=== PATIENT | female | born 1975 | race Caucasian/White ===

== ENCOUNTER 2019-04-08 22:04 | Inpatient (IN) | payer BC ==
[~2019-04-08] VITALS: Ht 170.2 cm; Wt 58.1 kg
[2019-04-08 22:11] VITALS: BP 101/63
--- NOTE | 2019-04-08 22:11 | NUR ---
PT BIBA TO BED 09.
--- NOTE | 2019-04-08 22:13 | NUR ---
PT BIBA FOR FEVER, WEAKNESS AND HYPOTENSION. PT ALERT AND ORIENTED X4. PT IS LETHARGIC BUT ABLE TO ANSWER QUESTIONS APPROPRIATELY. 20 GAUGE IV ESTABLISHED ON SCENE IN RIGHT HAND. PT HAS PICC LINE IN LEFT ARM. PER PT ILEOSTOMY BAG WAS REMOVED ON 03/28/19 AND WAS SEPTIC. PT WAS TO BE ADMITTED TO [facility] ON Tuesday04/09/19 BUT "WASN'T DOING GOOD AT HOME." PT CURRENTLY ON 2L OF O2 VIA NC AT 98% SATURATION. ALLERGIES: PENICILLINS, SULFA. MED HX: LUPUS. SAFETY MEASURES IN PLACE. ERMD MADE AWARE OF PT STATUS.
[2019-04-08] MEDS ORDERED: NACL 0.9% 2,000 ML IV SCH (22:18)
[2019-04-08] MEDS ORDERED: LEVOFLOXACIN 750 MG/D5W PREMIX 150 ML IV ONE (22:20)
[2019-04-08] MEDS ORDERED: VANCOMYCIN 1,000 MG in DEXTROSE 5% 250 ML IV ONE (22:20)
--- NOTE | 2019-04-08 22:48 | NUR ---
xray at bedside
[2019-04-08 22:54] LABS: BASOPHILS % (AUTO) 0.6 % (0.0-2.0); EOSINOPHILS # (AUTO) 0.2 K/uL (0-0.4); EOSINOPHILS % (AUTO) 3.2 % (0.0-4.0); HEMATOCRIT 32.3 % (36-48); HEMOGLOBIN 10.5 g/dL (12.0-16.0); LYMPHOCYTES # (AUTO) 0.5 K/uL (2.5-16.5); LYMPHOCYTES % (AUTO) 7.6 % (20.5-51.1); MEAN CORPUSCULAR HEMOGLOBIN 28 pg (27-31); MEAN CORPUSCULAR HGB CONC 33 g/dL (33-37); MEAN CORPUSCULAR VOLUME 84.8 fL (80-94); MONOCYTES # (AUTO) 0.5 K/uL (0.8-1.0); MONOCYTES % (AUTO) 8.2 % (1.7-9.3); NEUTROPHILS % (AUTO) 80.4 % (42.2-75.2); PLATELET COUNT (AUTO) 121 K/uL (140-450); RED BLOOD CELL COUNT(AUTO) 3.81 MIL/uL (4.20-5.40); RED CELL DISTRIBUTION WIDTH 15.5 % (11.6-13.7); WHITE BLOOD COUNT (AUTO) 6.2 K/uL (4.8-10.8)
--- NOTE | 2019-04-08 22:55 | NUR ---
PT AT BEDSIDE. PER PT " RECEIVED ILEOSTOMY IN SEPTEMBER 2018 AND HAD A "TAKE DOWN" S/P CLOSURE OF ILEOSTOMY 02/28/19 AT [facility]. ON MARCH 23 PT WAS ADMITTED TO [facility] FOR SEPSIS" PER PT [facility] IS AWARE OF CURRENT SITUATION OF FEVER AND NOT FEELING WELL TODAY. THEY WERE TO HAVE A DIRECT ADMIT TO [facility] ON 04/09/19. PT CALLED 911 TODAY BECAUSE PT PASSED OUT IN THE BATHROOM. PT DID NOT HAVE LOC OR HAVE HEAD INJURY.
[2019-04-08 22:59] LABS: ANION GAP 9.8 (8-16); CREATININE 0.8 mg/dL (0.6-1.3); POTASSIUM 3.8 mmol/L (3.5-5.1)
[2019-04-08] MEDS ORDERED: HYDR2TAB6 PO (23:02)
[2019-04-08] MEDS ORDERED: GABA300C PO ×2 (23:02)
[2019-04-08] MEDS ORDERED: NA P135N RC (23:02)
[2019-04-08] MEDS ORDERED: [UNRECOGNIZED DRUG - CODE] PO (23:02)
[2019-04-08] MEDS ORDERED: ALPR1TAB2 PO (23:02)
[2019-04-08] MEDS ORDERED: MULT-153 PO (23:02)
[2019-04-08] MEDS ORDERED: ONDA8TAB PO (23:02)
[2019-04-08] MEDS ORDERED: TIZA4CAP PO (23:02)
[2019-04-08] MEDS ORDERED: SUMA100T1 PO (23:02)
[2019-04-08] MEDS ORDERED: PRO5 PO (23:02)
[2019-04-08] MEDS ORDERED: BISA-213 RC (23:02)
[2019-04-08] MEDS ORDERED: MIRABULK PO (23:02)
[2019-04-08] MEDS ORDERED: [UNRECOGNIZED DRUG - CODE] SL (23:02)
[2019-04-08] MEDS ORDERED: SIME20SU1 PO (23:02)
[2019-04-08] MEDS ORDERED: ACET-2619 PO (23:02)
[2019-04-08] MEDS ORDERED: MAGN400S60 PO (23:02)
[2019-04-08] MEDS ORDERED: BEN10 PO (23:02)
[2019-04-08 23:05] LABS: ALBUMIN 2.8 g/dL (3.4-5.0); TOTAL BILIRUBIN 0.7 mg/dL (0.0-1.0)
[2019-04-08 23:43] LABS: APPEARANCE,URINE CLEAR (CLEAR); BILIRUBIN,URINE NEGATIVE (NEGATIVE); BLOOD, URINE NEGATIVE (NEGATIVE); COLOR,URINE YELLOW (YELLOW); LEUKOCYTE ESTERASE ,URINE NEGATIVE (NEGATIVE); NITRITE, URINE NEGATIVE (NEGATIVE); UGLUCOSE NEGATIVE (NEGATIVE)
--- NOTE | 2019-04-08 23:51 | NUR ---
ERMD AT BEDSIDE
[2019-04-08] MEDS ORDERED: fentaNYL 0.05 MG/ML VIAL IVP ONE (23:55)
[2019-04-08] MEDS ORDERED: ACETAMINOPHEN EXTRA STRENGTH 500 MG TAB PO ONE (23:55)
[2019-04-08] MEDS ORDERED: VANCOMYCIN 1,000 MG VIAL ONE (23:59)
[2019-04-09] MEDS ORDERED: NACL 0.9% 1,000 ML IV SCH (00:07)
[2019-04-09] MEDS ORDERED: NACL 0.9% 1,000 ML IV ONE (00:10)
[2019-04-09 00:43] LABS: PROTHROMBIN TIME 11.1 secs (10.8-13.4)
[2019-04-09 00:47] LABS: FREE T4 (FREE THYROXINE) 0.61 ng/dL (0.76-1.46); MAGNESIUM 1.7 mg/dL (1.8-2.4); PHOSPHORUS 2.8 mg/dL (2.5-4.9); THYROID STIMULATING HORMONE 0.14 uIU/mL (0.34-3.74)
[2019-04-09 01:00] VITALS: BP 104/63
--- NOTE | 2019-04-09 01:00 | NUR ---
PT HONORIO. READY TO TRANSFER TO TELE ROOM 107A
--- NOTE | 2019-04-09 01:00 | NUR ---
REPORT RECEIVED FROM AM NURSE AT BEDSIDE. PT IN STABLE CONDITION. AAOX4. INTRODUCED SELF TO PT AND FAMILY. BOARD UPDATED. PT HAS COMPLAINTS OF PAIN. AWAITING MD ORDERS. NO SOB. AFEBRILE. IV SITE R HAND 20G INFILTRATED. WILL REMOVED IV. PT HAS A L UA SINGLE LUMEN PICC LINE FROM HOME PATENT AND INTACT WILL BE RUNNING NS@100ML/HR. PT HAS 2 1L BOLUSES FROM ER TO COMPLETE ALONG WITH VANCO WITH 145ML LEFT. SKIN WARM, DRY, AND INTACT WITH NO OPEN WOUNDS. MRSA SWAB COMPLETE. URINE TO BE COLLECTED. PT IS AMBULATORY WITH ASSIST. PT HAS S/P FALL AT HOME IN THE BATHROOM. BED LOCKED IN LOW POSITION. CALL GARCIA WITHIN REACH. SAFETY PRECAUTION IN PLACE. ALL NEEDS MET AT THIS TIME.
--- NOTE | 2019-04-09 01:07 | NUR ---
Transfer of care and report given to ANA LILIA Hernández
--- NOTE | 2019-04-09 01:07 | NUR ---
Patient will be admitted to care of Dr Roa. Admited to Tele. Will go to room 107a. Belongings list completed. Report to AAN LILIA Hernández.
[2019-04-09] MEDS ORDERED: DOCU1TAB73 PO (01:59)
[2019-04-09] MEDS ORDERED: [UNRECOGNIZED DRUG - CODE] PO (01:59)
[2019-04-09] MEDS ORDERED: PRO5 PO (01:59)
[2019-04-09] MEDS ORDERED: BEN10 PO (01:59)
--- NOTE | 2019-04-09 02:00 | NUR ---
URINE SAMPLE COMPLETE. SENT OUT TO LAB.
[2019-04-09 02:22] LABS: BARBITURATE, URINE NEG. ng/ml (NEG <=200); BENZODIAZEPINE, URINE POS. ng/mL (NEG <=200); CANNABINOID, URINE NEG. ng/mL (NEG <=50); COCAINE, URINE NEG. ng/mL (NEG <=300); OPIATE, URINE POS. ng/mL (NEG <=2000); PHENCYCLIDINE SCREEN,URINE NEG. ng/mL (NEG <=25)
[2019-04-09] MEDS ORDERED: MECLIZINE 25 MG TAB PO PRN (03:20)
[2019-04-09] MEDS ORDERED: HYOSCYAMINE SULFATE 0.125 MG SL SCH (03:20)
[2019-04-09] MEDS ORDERED: HYDROmorphone 2 MG TAB PO PRN (03:20)
[2019-04-09] MEDS ORDERED: DICYCLOMINE HYDROCHLORIDE PO SCH (03:20)
[2019-04-09] MEDS ORDERED: RIZATRIPTAN BENZOATE 10 MG PO SCH (03:20)
[2019-04-09] MEDS ORDERED: TPN PER PHARMACY MC PRN (03:20)
[2019-04-09 04:00] VITALS: BP 101/59
[2019-04-09] MEDS: DEXT 5% /NACL 0.9% 1,000 ML IV SCH ×3 (04:17→22:06)
[2019-04-09] MEDS ORDERED: cefTRIAXone 1,000 MG VIAL ONE (04:19)
--- NOTE | 2019-04-09 04:21 | NUR ---
DIANA HARTMAN AND RUNNING. PT TOLERATING WELL.
[2019-04-09] MEDS ORDERED: MAG SULF 2000 MG/WATER PREMIX 50 ML IV SCH (04:30)
[2019-04-09] MEDS ORDERED: SODIUM PHOSPHATE 118 ML ENEM RC SCH (04:30)
[2019-04-09] MEDS: ALPRAZolam 0.5 MG TAB PO PRN (04:33)
--- NOTE | 2019-04-09 04:33 | NUR ---
XANAX GIVEN PO FOR ANXIETY. PT TOLERATED WELL.
--- NOTE | 2019-04-09 04:53 | NUR ---
HUNG AND RUNNING. PT TOLERATED WELL.
[2019-04-09] MEDS ORDERED: ONDANSETRON 4 MG TAB PO SCH (05:00)
[2019-04-09] MEDS ORDERED: HYDROmorphone 1 MG/ML AMP IVP PRN (05:35)
[2019-04-09] MEDS: LEVOTHYROXINE 0.05 MG TAB PO SCH (05:38)
--- NOTE | 2019-04-09 05:38 | NUR ---
SYNTHROID GIVEN PO. PT TOLERATED WELL.
--- NOTE | 2019-04-09 05:41 | NUR ---
DILAUDID GIVEN FOR 8/10 GENERALIZED PAIN. PT TOLERATED WELL.
--- NOTE | 2019-04-09 06:20 | NUR ---
PT OFF THE FOOR FOR CT HEAD W/O CONTRAST.
--- NOTE | 2019-04-09 07:00 | NUR ---
PT WANTS ENEMA TO BE DONE LATER WHEN SHE IS AWAKE. PT IN STABLE CONDITION.
--- NOTE | 2019-04-09 07:05 | NUR ---
RECEIVED BEDSIDE REPORT FROM FINANCIAL PROCESSING CLERK NURSE. PATIENT IS AWAKE, ALERT AND ORIENTEDX4. NO SIGNS OF DISTRESS ON RA. SKIN IS INTACT. PATIENT CAME IN FOR SYNCOPE AND DOES NOT WANT TO DO ORTHO VITALS AT THIS TIME. FALL RISK PROTOCOL IN PLACE. CONTINENT. PATIENT HAS DARIN PICC LINE, SINGLE LUMEN. INFUSING D5NS AT 100. CLEAN, DRY AND INTACT. TELE MONITOR IN PLACE. BED IN LOW POSITION. CALL LIGHT WITHIN REACH. WILL CONTINUE TO MONITOR
[2019-04-09 07:12] LABS: CREATININE 0.7 mg/dL (0.6-1.3)
[2019-04-09 07:13] LABS: BASOPHILS % (AUTO) 0.5 % (0.0-2.0); EOSINOPHILS # (AUTO) 0.3 K/uL (0-0.4); EOSINOPHILS % (AUTO) 3.9 % (0.0-4.0); HEMATOCRIT 31.1 % (36-48); HEMOGLOBIN 10.2 g/dL (12.0-16.0); LYMPHOCYTES # (AUTO) 0.7 K/uL (2.5-16.5); LYMPHOCYTES % (AUTO) 10.6 % (20.5-51.1); MEAN CORPUSCULAR HEMOGLOBIN 28 pg (27-31); MEAN CORPUSCULAR HGB CONC 33 g/dL (33-37); MEAN CORPUSCULAR VOLUME 85.7 fL (80-94); MONOCYTES # (AUTO) 0.6 K/uL (0.8-1.0); MONOCYTES % (AUTO) 9.1 % (1.7-9.3); NEUTROPHILS # (AUTO) 5.3 K/uL (1.8-7.7); NEUTROPHILS % (AUTO) 75.9 % (42.2-75.2); PLATELET COUNT (AUTO) 116 K/uL (140-450); RED BLOOD CELL COUNT(AUTO) 3.63 MIL/uL (4.20-5.40); RED CELL DISTRIBUTION WIDTH 15.5 % (11.6-13.7)
[2019-04-09 07:30] LABS: MAGNESIUM 1.8 mg/dL (1.8-2.4); PHOSPHORUS 3.4 mg/dL (2.5-4.9)
[2019-04-09 08:00] VITALS: BP 128/82
[2019-04-09] MEDS ORDERED: HYOSCYAMINE 0.125 MG TAB SL PRN (08:50)
[2019-04-09] MEDS ORDERED: SENNOSIDES PO SCH (09:00)
[2019-04-09] MEDS: BISACODYL 10 MG SUPP RC SCH (09:00)
[2019-04-09] MEDS ORDERED: NON-FORMULARY ITEM (Bisacodyl (Dulcolax) 10 MG) RC SCH (09:00)
[2019-04-09] MEDS ORDERED: DOCUSATE SODIUM PO SCH (09:00)
[2019-04-09] MEDS: MAGNESIUM HYDROXIDE 2400 MG/30 ML UDC PO SCH (09:00)
[2019-04-09] MEDS ORDERED: NON-FORMULARY ITEM (Multivitamin (Multi-Vitamins) 1 TAB) PO SCH (09:00)
[2019-04-09] MEDS: DOCUSATE SODIUM 100 MG GELCAP PO SCH ×2 (09:00→22:07)
[2019-04-09] MEDS: DOCUSATE SOD/SENNA 50/8.6 MG 1 TAB PO SCH ×2 (09:00→21:00)
[2019-04-09] MEDS ORDERED: TIZANIDINE HCL PO SCH (09:00)
[2019-04-09] MEDS: POLYETHYLENE GLYCOL 17 GM/PKT PO SCH (09:00)
[2019-04-09] MEDS: HYDROmorphone PFS 2 MG/ML SYR IVP PRN ×4 (09:20→22:28)
[2019-04-09] MEDS: LACTOBACILLUS RHAMNOSUS GG 1 EACH CAP PO SCH (09:24)
[2019-04-09 09:25] LABS: CHOL/HDL RATIO 5.4 (1-4.5)
[2019-04-09] MEDS: GABAPENTIN 300 MG CAP PO SCH ×2 (09:25→22:08)
[2019-04-09] MEDS: MULTIVITAMIN 1 TAB PO SCH (09:25)
[2019-04-09] MEDS: tiZANidine 4 MG TAB PO SCH ×3 (09:26→17:12)
[2019-04-09] MEDS: MIDODRINE 5 MG TAB PO SCH ×3 (09:27→17:12)
--- NOTE | 2019-04-09 09:34 | NUR ---
PATIENT HAD A BM SHE SAID IT WAS "DECENT" REFUSED ALL LAXATIVES. STOOL SOFTNERS. PATIENT WANTED PAIN MED. ADMINISTERED PAIN MED, AND OTHER ARLET MEDS. PATIENT EDUCATED ON SIDE EFFECTS. TOLERATED WELL. WILL CONTINUE TO MONITOR. AT BEDSIDE
--- NOTE | 2019-04-09 10:12 | NUR ---
PATIENT IS SPEAKING TO STUDENT NURSE ABOUT HER ILEOSTOMY. NO SIGNS OF DISTRESS. WILL CONTINUE TO MONITOR
[2019-04-09] MEDS: ACETAMINOPHEN 325 MG TAB PO PRN ×2 (10:50→23:02)
--- NOTE | 2019-04-09 11:09 | NUR ---
PT WORKED WITH PATIENT. ORTH B/P VITALS ARE FOLLOWS SUP 116/52 SIT 110/78 STAND 108/77
[2019-04-09 12:00] VITALS: BP 119/71
--- NOTE | 2019-04-09 12:11 | NUR ---
BUBBLE STUDY IS DONE. WILL CONTINUE TO MONITOR THE PATIENT.
--- NOTE | 2019-04-09 13:37 | NUR ---
ADMINISTERED ARLET MED AND PRN PAIN MED. PATIENT TOLERATED WELL. EDUCATED ON SIDE EFFECTS. WILL CONTINUE TO MONITOR
--- NOTE | 2019-04-09 14:25 | NUR ---
DR WILSON SAID OK FOR COTTAGE CHEESE PLATTER, ORDERED PATIENT THE TRAY, TOLD HEIDI I WOULD PUT REG DIET BUT PATIENT CAN ONLY HAVE COTTAGE CHEESE PLATTER AND YOGURT
--- NOTE | 2019-04-09 15:08 | NUR ---
GAVE BEDSIDE REPORT TO ELPIDIO. PATIENT ENDORSED IN STABLE CONDITION.
--- NOTE | 2019-04-09 15:09 | NUR ---
RECEIVED BEDSIDE REPORT FROM YAQUELIN RN FOR CONTINUOS OF CARE, PT STABLE, NO DISTRESS NOTED.
[2019-04-09 16:00] VITALS: BP 127/77
--- NOTE | 2019-04-09 17:33 | NUR ---
PT C/O PAIN, STATED HER WHOLE BODY IS ACHING 01/31, PAIN MEDICATION PER MD ORDER ADMINISTERED, PT TOLERATED WELL, NO DISTRESS NOTED, CALL LIGHT WITHIN REACH, WILL CONTINUE TO MONITOR.
[2019-04-09 18:01] LABS: BASOPHILS % (AUTO) 0.9 % (0.0-2.0); EOSINOPHILS # (AUTO) 0.3 K/uL (0-0.4); EOSINOPHILS % (AUTO) 6.1 % (0.0-4.0); HEMATOCRIT 28.8 % (36-48); HEMOGLOBIN 9.4 g/dL (12.0-16.0); LYMPHOCYTES % (AUTO) 18.6 % (20.5-51.1); MEAN CORPUSCULAR HEMOGLOBIN 28 pg (27-31); MEAN CORPUSCULAR HGB CONC 33 g/dL (33-37); MEAN CORPUSCULAR VOLUME 85.4 fL (80-94); MONOCYTES # (AUTO) 0.7 K/uL (0.8-1.0); MONOCYTES % (AUTO) 14.1 % (1.7-9.3); NEUTROPHILS # (AUTO) 3.2 K/uL (1.8-7.7); NEUTROPHILS % (AUTO) 60.3 % (42.2-75.2); PLATELET COUNT (AUTO) 115 K/uL (140-450); RED BLOOD CELL COUNT(AUTO) 3.37 MIL/uL (4.20-5.40); RED CELL DISTRIBUTION WIDTH 15.6 % (11.6-13.7); WHITE BLOOD COUNT (AUTO) 5.2 K/uL (4.8-10.8)
--- NOTE | 2019-04-09 19:25 | NUR ---
RECEIVED REPORT AT BEDSIDE FROM ELPIDIO SUNG DAYSHIFT NURSE AT BEDSIDE FOR CONTINUITY OF CARE, PT IN STABLE CONDITION.
--- NOTE | 2019-04-09 19:25 | NUR ---
ENDORSED PT TO GRAIN ORIGINATION SPECIALIST NURSE SJ SUNG, PT STABLE, NO DISTRESS NOTED, CALL LIGHT WITHIN REACH.
[2019-04-09 20:00] VITALS: BP 141/79
--- NOTE | 2019-04-09 20:00 | NUR ---
PT IN BED ALL FALLS PRECAUTION IN PLACE. PICC LINE INTACT AND FLUSHED PATENT. PT IS AOX4 WITH SKIN INTACT. PT LOWER ABDOMEN SOMEWHAT DISTENDED AND FIRM. PT WAS UP TO TOILET AND AMBULATED WITH A STEADY GAIT. SHE HAD A SMALL BM. TPN HUNG AND IS RUNNING D5 N/S AT 50ML. V/S FOLLOWS T 99.5 P 63 R 18 B/P 141/79 02 93% ON ROOM AIR. NEW IV SITE IS PROVIDED FOR PT R HAND 24 GUAGE INTACT AND FLUSHED PATENT.
[2019-04-09] MEDS: MULTIVITAMIN IV SCH ×4 (22:04)
[2019-04-09] MEDS: [UNRECOGNIZED DRUG - OTHER] IV SCH ×4 (22:04)
[2019-04-09] MEDS: DEXTROSE IV SCH ×4 (22:04)
[2019-04-09] MEDS: AMINO ACIDS IV SCH ×4 (22:04)
[2019-04-09] MEDS: ONDANSETRON 4 MG/2 ML VIAL IVP PRN (22:10)
[2019-04-09] MEDS: ZOLPIDEM 5 MG TAB PO PRN (22:10)
[2019-04-09] MEDS: DICYCLOMINE HCL LIQUID 10 MG/5 ML UDC PO PRN (22:11)
--- NOTE | 2019-04-09 22:15 | NUR ---
PT GIVEN ZOFRAN, AND BENTYL FOR FOR A STOMACH ACHE WELL AMBIEN FOR INSOMNIA. WILL MONITOR FOR EFFECT.
--- NOTE | 2019-04-09 22:28 | NUR ---
PT C/O SEVERE PAIN IN STOMACH AND GENERALIZED PAIN, GIVEN IVP DILAUDID. DR. MALAVE AT BEDSIDE FOR CONSULT. PT D/CD PREVIOUS ABT AND ORDERED MERREM IV ABT.
[2019-04-09] MEDS: BLOOD GLUCOSE MONITORING 1 DEV DEV MC SCH (23:06)
--- NOTE | 2019-04-09 23:30 | NUR ---
PT C/O THAT SHE FEELS FEVERISH. TEMP TAKEN IT WAS 101.5, PT GIVEN TYLENOL 650MG FOR FEVER. OTHER V/S FOLLOWS P 88 R 18 B/P 127/72 02 96% ON ROOM AIR.
[2019-04-10] VITALS: BP 127/72
[2019-04-10] MEDS ORDERED: INSULIN LISPRO SLIDING SCALE 100 UNITS/ML VIAL SUBQ PRN
--- NOTE | 2019-04-10 00:10 | NUR ---
TEMP RETAKEN AND IT WAS 100.7
[2019-04-10] MEDS: HYDROmorphone PFS 2 MG/ML SYR IVP PRN ×6 (02:27→21:55)
[2019-04-10 04:00] VITALS: BP 118/72
--- NOTE | 2019-04-10 04:10 | NUR ---
CARLOS FROM LAB CALLED BLOOD CULTURE CAM BACK POSITIVE, MD ALVARADO MADE AWARE, NO NEW ORDERS PT WAS SEEN BY MD MALAVE ORDERS RECIEVED FOR MERRREM IV ABT.
[2019-04-10] MEDS ORDERED: MEROPENEM 1,000 MG VIAL IV ONE (05:43)
[2019-04-10] MEDS: MEROPENEM 1,000 MG in NACL 0.9% 100 ML IV SCH ×3 (06:12→22:55)
[2019-04-10] MEDS: BLOOD GLUCOSE MONITORING 1 DEV DEV MC SCH ×3 (06:21→17:39)
--- NOTE | 2019-04-10 06:45 | NUR ---
PT GIVEN IVP DILAUDID FOR SEVERE PAIN. IV ON R HAND INFILTRATED AND WAS REMOVED.
[2019-04-10] MEDS: LEVOTHYROXINE 0.05 MG TAB PO SCH (06:48)
[2019-04-10 07:13] LABS: CARBON DIOXIDE 26.9 mmol/L (21-32); CREATININE 0.6 mg/dL (0.6-1.3); POTASSIUM 3.9 mmol/L (3.5-5.1)
[2019-04-10 07:18] LABS: MAGNESIUM 1.7 mg/dL (1.8-2.4); PHOSPHORUS 3.6 mg/dL (2.5-4.9)
[2019-04-10 08:01] VITALS: BP 131/78
--- NOTE | 2019-04-10 08:05 | NUR ---
RECEIVED BED SIDE REPORT FROM MANUFACTURING ENGINEER CHIEF RN. PT A/O X4, VS STABLE, ON RA IN NO RESP DISTRESS. TEMP 99 DEGREES. PICC LINE TO BE REPLACED TODAY, PT MADE AWARE. NO IV PERIPHERAL ACCESS. TPN WAS RUNNING AT 50CC/HR. PT DENIES PAIN. SKIN INTACT. FALL RISK SIGN POSTED OUTSIDE DOOR, BED ALARM ON, CALL LIGHT WITHIN REACH, WILL CONTINUE TO MONITOR.
[2019-04-10] MEDS: LACTOBACILLUS RHAMNOSUS GG 1 EACH CAP PO SCH (09:00)
[2019-04-10] MEDS: DOCUSATE SODIUM 100 MG GELCAP PO SCH ×2 (09:00→21:00)
[2019-04-10] MEDS: MAGNESIUM HYDROXIDE 2400 MG/30 ML UDC PO SCH (09:00)
[2019-04-10] MEDS: DOCUSATE SOD/SENNA 50/8.6 MG 1 TAB PO SCH ×2 (09:00→21:00)
[2019-04-10] MEDS: POLYETHYLENE GLYCOL 17 GM/PKT PO SCH (09:00)
[2019-04-10] MEDS ORDERED: MAGNESIUM OXIDE 400 MG TAB PO SCH (09:00)
--- NOTE | 2019-04-10 09:00 | NUR ---
PATIENT HAS BEEN SCREENED AND CATEGORIZED HIGH NUTRITION RISK. PATIENT WILL BE SEEN WITHIN 1-2 DAYS OF ADMISSION. 04/10/[address]
[2019-04-10] MEDS: MULTIVITAMIN 1 TAB PO SCH (09:01)
[2019-04-10] MEDS: BISACODYL 10 MG SUPP RC SCH (09:03)
[2019-04-10] MEDS: tiZANidine 4 MG TAB PO SCH ×3 (09:04→16:08)
[2019-04-10] MEDS: MIDODRINE 5 MG TAB PO SCH ×3 (09:04→16:08)
--- NOTE | 2019-04-10 09:15 | NUR ---
PICC LINE CONSENT FORMED SIGNED BY PATIENT. IV STARTED BY CATRINA OTERO RN. PT STATES SHE HAS NAUSEA. WILL GIVE ZOFRAN PER MD ORDER. PT REFUSED COLACE, MIRALAX, MILK OF MAGNESIA BECAUSE PT STATES SHE FEELS BLOATED WITH ALL THOSE MEDICATIONS. GAVE BISOCODYL SUPP. CALL PICC LINE RN, NO ANSWER, LEFT A MESSAGE. WILL CONTINUE TO MONITOR.
[2019-04-10] MEDS: GABAPENTIN 300 MG CAP PO SCH ×2 (09:31→21:48)
[2019-04-10] MEDS: ONDANSETRON 4 MG/2 ML VIAL IVP PRN (09:39)
--- NOTE | 2019-04-10 09:40 | NUR ---
GAVE PT BENJA PER MD ORDER. WILL CONTINUE TO MONITOR.
--- NOTE | 2019-04-10 10:58 | NUR ---
GAVE DILAUDID PER MD ORDER. WILL CONTINUE TO MONITOR.
--- NOTE | 2019-04-10 11:26 | NUR ---
PHYSICAL THERAPY CAME TO WORK WITH PT. PT STABLE. VS STABLE PRE AND POST GAIT. WILL CONTINUE TO MONITOR.
[2019-04-10 11:44] VITALS: BP 122/82
--- NOTE | 2019-04-10 12:20 | NUR ---
PT AMBULATED TO SHOWER. COVERED PICC LINE AND IV ON LEFT HAND WITH PLASTIC BAG AND TAPE. WITH PT. WILL CONTINUE TO MONITOR.
[2019-04-10 15:28] VITALS: BP 128/74
--- NOTE | 2019-04-10 15:38 | NUR ---
PT RESTING COMFORTABLY IN BED, APPEARS IN NO DISTRESS, CALL LIGHT WITHIN REACH, WILL CONTINUE TO MONITOR.
--- NOTE | 2019-04-10 16:00 | NUR ---
04/10/19 RD INITIAL ASSESSMENT COMPLETED PLEASE REFER TO NUTRITION ASSESSMENT UNDER CARE ACTIVITY FOR ESTIMATED NUTRITIONAL NEEDS. 1. CONTINUE REGULAR DIET, COMPOSED OF COTTAGE CHEESE FRUIT PLATE AND YOGURT TOLERATED 2. INCREASED TPN MEDICALLY APPROPRIATE TO EVENTUALLY MEET AT [facility] [address] TO FOLLOW-UP 2-3 DAYS, HIGH RISK MIRTHA BARRAZA, RD
[2019-04-10] MEDS: DEXT 5% /NACL 0.9% 1,000 ML IV SCH (16:14)
--- NOTE | 2019-04-10 17:30 | NUR ---
NEW IV PLACED ON PT'S RIGHT HAND 22G D/T LEFT HAND 22G IV INFILTRATED. D5 NS RUNNING AT 50CC/HR.
--- NOTE | 2019-04-10 17:42 | NUR ---
SPOKE WITH . SHE SAID THAT IT IS FINE TO GIVE ANOTHER DILAUDID DOSE SINCE THE LAST DOSE AT [address] DUE TO IV INFILTRATED. WILL GIVE DILAUDID PER MD ORDER
--- NOTE | 2019-04-10 19:18 | NUR ---
GAVE BED SIDE REPORT TO PARTS SPECIALIST RN. PT STABLE.
--- NOTE | 2019-04-10 19:20 | NUR ---
RECEIVED REPORT FROM AJAY SUNG DAYSHIFT NURSE AT BEDSIDE FOR CONTINUITY OF CARE, PT IN STABLE CONDITION.
[2019-04-10 20:00] VITALS: BP 111/62
[2019-04-10] MEDS ORDERED: [UNRECOGNIZED DRUG - OTHER] IV SCH ×4 (20:00)
[2019-04-10] MEDS ORDERED: DEXT 5% /NACL 0.9% 1,000 ML IV SCH (20:00)
[2019-04-10] MEDS ORDERED: AMINO ACIDS IV SCH ×4 (20:00)
[2019-04-10] MEDS ORDERED: DEXTROSE IV SCH ×4 (20:00)
[2019-04-10] MEDS ORDERED: MULTIVITAMIN IV SCH ×4 (20:00)
--- NOTE | 2019-04-10 20:00 | NUR ---
PT IN BED AOX4 IV SITE ON R HAND 22 G LOOKS PUFFY AND PT C/O OF PAIN, IV SITE DISCONTINUED. V/S FOLLOWS T 98.8 P 71 R 18 B/P 111/62 02 95% ON ROOM AIR. AWAITING ARRIVAL OF PICC LINE NURSE TO INSERT NEW PICC LINE CONSENT SIGNED AND IS IN THE CHART.
--- NOTE | 2019-04-10 21:00 | NUR ---
NEW PICC LINE INSERTED ON RIGHT, ARM DOUBLE LUMEN CATHETER. CHEST X-RAY DONE PICC LINE OK TO USE. TPN HUNG AND IS RUNNING AT 60MLS/HR ORDERED. MERREM ALSO HUNG AND IS RUNNING AT 200MLS/HR. PT GIVEN ORDERED MEDS OF NEURONTIN. PT DECLINED THE STOOL SOFTENERS DUE TO HAVING LARGE BM . COLACE AND YOVANA-COLACE HELD. PT ALSO DECLINED THE HEPARIN SHOT. PT DID REQUEST PRN BENTYL FOR STOMACH UPSET, DILAUDID FOR SEVERE GENERALIZED PAIN. Addendum: 04/11/19 at 0040 by Brianna Cedeño RN TIME OF NOTE 2200 NOT 2100
[2019-04-10] MEDS: DICYCLOMINE HCL LIQUID 10 MG/5 ML UDC PO PRN (21:51)
--- NOTE | 2019-04-10 22:20 | NUR ---
SPOKE WITH PRIMARY MD JHA REGARDING HEPARIN SHOT THAT IT OK IF PT REFUSES, PT IS AMBULATING WELL AND MOVES AROUND IN BED BY HERSELF. PT IS ALSO NOW SALINE LOCKED. PICC LINE REMOVED PRESSURE DRESSING APPLIED NO BLEEDING NOTED MEASURED 53CM PICC LINE OUT WITH TIP INTACT AND IT WAS SENT TO LAB FOR CULTURE.
[2019-04-10] MEDS: MULTIVITAMIN IV SCH ×4 (23:07)
[2019-04-10] MEDS: AMINO ACIDS IV SCH ×4 (23:07)
[2019-04-10] MEDS: [UNRECOGNIZED DRUG - OTHER] IV SCH ×4 (23:07)
[2019-04-10] MEDS: DEXTROSE IV SCH ×4 (23:07)
--- NOTE | 2019-04-10 23:15 | NUR ---
PT REQUESTING ZANAX FOR ANXIETY GIVEN PO/PRN. TPN RUNNING ORDERED. MERREM DOSE COMPLETED
[2019-04-10] MEDS: ALPRAZolam 0.5 MG TAB PO PRN (23:19)
[2019-04-11] VITALS: BP 150/75
--- NOTE | 2019-04-11 00:35 | NUR ---
PT IN BED TPN RUNNING AT 60MLS/HR ORDERED. FINGERSTICK IS 106, NO COVERAGE NEEDED. V/S FOLLOWS T 98.6 P 60 R 18 B/P 150/75 02 98% ON ROOM AIR. BED LOW SIDE RAILS UP X2 ALL REQUESTED NEEDS ATTENDED AND CALL GARCIA IN REACH.
[2019-04-11] MEDS: ZOLPIDEM 5 MG TAB PO PRN (01:17)
--- NOTE | 2019-04-11 01:20 | NUR ---
PT REQUESTED AND GIVEN AMBIEN FOR INSOMNIA, WILL MONITOR FOR EFFECT.
[2019-04-11] MEDS: HYDROmorphone PFS 2 MG/ML SYR IVP PRN ×4 (02:10→14:10)
--- NOTE | 2019-04-11 02:10 | NUR ---
PT GIVEN REQUESTED DILAUDID FOR SEVERE PAIN. WILL MONITOR FOR EFFECT.
[2019-04-11 04:00] VITALS: BP 123/75
[2019-04-11] MEDS: MEROPENEM 1,000 MG in NACL 0.9% 100 ML IV SCH ×2 (05:05→13:28)
[2019-04-11] MEDS: LEVOTHYROXINE 0.05 MG TAB PO SCH (06:23)
[2019-04-11] MEDS: BLOOD GLUCOSE MONITORING 1 DEV DEV MC SCH ×3 (06:24→12:25)
[2019-04-11 07:05] LABS: BASOPHILS % (AUTO) 0.3 % (0.0-2.0); EOSINOPHILS # (AUTO) 0.4 K/uL (0-0.4); EOSINOPHILS % (AUTO) 8.5 % (0.0-4.0); HEMATOCRIT 27.9 % (36-48); HEMOGLOBIN 9.4 g/dL (12.0-16.0); LYMPHOCYTES # (AUTO) 1.1 K/uL (2.5-16.5); LYMPHOCYTES % (AUTO) 24.2 % (20.5-51.1); MEAN CORPUSCULAR HEMOGLOBIN 28 pg (27-31); MEAN CORPUSCULAR HGB CONC 34 g/dL (33-37); MEAN CORPUSCULAR VOLUME 83.9 fL (80-94); MONOCYTES # (AUTO) 0.5 K/uL (0.8-1.0); NEUTROPHILS # (AUTO) 2.4 K/uL (1.8-7.7); PLATELET COUNT (AUTO) 138 K/uL (140-450); RED BLOOD CELL COUNT(AUTO) 3.32 MIL/uL (4.20-5.40); RED CELL DISTRIBUTION WIDTH 15.6 % (11.6-13.7); WHITE BLOOD COUNT (AUTO) 4.4 K/uL (4.8-10.8)
--- NOTE | 2019-04-11 07:10 | NUR ---
RECEIVED BEDSIDE REPORT FROM EMERGENCY ROOM ORDERLY NURSE SJ. PT IS AWAKE AND ALERT, IN NO ACUTE DISTRESS. PT IS C/O A HEADACHE AND R EYE PAIN; R EYE APPEARS TO BE BLOODSHOT. MD IS AWARE. PT IS ON ROOM AIR, SKIN IS INTACT. RUE PICC LINE NOTED, INFUSING TPN 60 ML/HR. FALL PRECAUTIONS ARE IN PLACE, CALL LIGHT IS WITHIN REACH. WILL CONTINUE TO MONITOR.
[2019-04-11 07:12] LABS: ANION GAP 14.8 (8-16); CARBON DIOXIDE 26.7 mmol/L (21-32); CREATININE 0.7 mg/dL (0.6-1.3); POTASSIUM 3.5 mmol/L (3.5-5.1)
[2019-04-11 07:19] LABS: MAGNESIUM 1.6 mg/dL (1.8-2.4); PHOSPHORUS 3.8 mg/dL (2.5-4.9)
[2019-04-11 08:00] VITALS: BP 144/78
[2019-04-11] MEDS ORDERED: APAP/BUTAL/CAFF 325/50/40 MG 1 TAB PO SCH (08:00)
[2019-04-11] MEDS: GABAPENTIN 300 MG CAP PO SCH (08:32)
[2019-04-11] MEDS: LACTOBACILLUS RHAMNOSUS GG 1 EACH CAP PO SCH (08:34)
[2019-04-11] MEDS: MULTIVITAMIN 1 TAB PO SCH (08:34)
[2019-04-11] MEDS: tiZANidine 4 MG TAB PO SCH ×2 (08:34→13:28)
[2019-04-11] MEDS: DOCUSATE SODIUM 100 MG GELCAP PO SCH (08:35)
[2019-04-11] MEDS: MIDODRINE 5 MG TAB PO SCH ×2 (08:35→13:27)
[2019-04-11] MEDS: POLYETHYLENE GLYCOL 17 GM/PKT PO SCH (08:35)
[2019-04-11] MEDS: MAGNESIUM HYDROXIDE 2400 MG/30 ML UDC PO SCH (08:35)
[2019-04-11] MEDS: DOCUSATE SOD/SENNA 50/8.6 MG 1 TAB PO SCH (08:35)
[2019-04-11] MEDS: BISACODYL 10 MG SUPP RC SCH (08:36)
--- NOTE | 2019-04-11 08:49 | NUR ---
AM MEDS ADMINISTERED, PT TOLERATED WELL. PT REFUSED HER BOWEL MOVEMENT MEDS, STATING THAT THEY MAKE HER STOMACH HURT, AND THAT SHE WILL TAKE A SUPPOSITORY LATER IF SHE NEEDS TO. ORDERED MIDODRINE WAS ALSO HELD BECAUSE PT'S BP WAS 144/78 THIS AM; PT AGREES TO THIS MED TO BE HELD.
[2019-04-11] MEDS ORDERED: PANTOPRAZOLE 40 MG INJ VIAL IVP SCH (09:00)
--- NOTE | 2019-04-11 09:51 | NUR ---
PHARMACY CALLED, ASKED IF THE PT NEEDS ANOTHER TPN BAG MADE FOR TONIGHT, PT IS SET TO BE DISCHARGED. DR WILSON SAID TO STILL PREPARE A BAG OF TPN FOR TONIGHT. PHARMACIST YANDEL GERARDO.
--- NOTE | 2019-04-11 09:56 | NUR ---
I RECEIVED A CALL FROM PT'S HOME HEALTH CARE PRIOR TO ADMISSION [phone] SPOKE WITH MARTINA PHARMACIST STATED PT IS WITH THEIR CARE PRIOR TO HOSPITAL ADMIT AND WOULD LIKE THE UPDATE AND WOULD LIKE TO CONTINUE THE CARE AFTER DISCHARGE. WILL NOTIFY MD AND CM TO F/U .THE INTAKE NAME IS REJI # [phone] EXT [phone]
[2019-04-11] MEDS ORDERED: MAG SULF 2000 MG/WATER PREMIX 50 ML IV SCH (10:00)
--- NOTE | 2019-04-11 10:25 | NUR ---
IV MAGNESIUM INFUSING FOR MAGNESIUM LEVEL 1.6. IV DILAUDID ADMINISTERED FOR GENERAL BODY PAIN 03/03
--- NOTE | 2019-04-11 10:37 | NUR ---
PT REQUESTED COTTAGE CHEESE AND A SIDE OF FRUIT. PROVIDED PER PT'S REQUEST.
--- NOTE | 2019-04-11 10:49 | NUR ---
SW visited patient to inquire about what home health that she was using. Patient stated she is under [facility]. SW informed [facility]. JUNI/LOVE will follow up as needed. GIOVANI Borjas ext. [phone]
--- NOTE | 2019-04-11 11:29 | NUR ---
CONTACTED [facility] [phone] TO CONFIRM THAT THE PATIENT IS UNDER THEIR SERVICES PRIOR TO ADMISSION, ABLE TO SPEAK TO ANNA AND SHE CONFIRMED THAT SHE IS THEIR PATIENT. SHE PROVIDED ME OF THE FAX NUMBER [phone] TO SEND ORDERS. AWAITING FOR ORDERS.
[2019-04-11 12:00] VITALS: BP 98/63
[2019-04-11] MEDS ORDERED: APAP/BUTAL/CAFF 325/50/40 MG 1 TAB PO PRN (12:40)
[2019-04-11] MEDS ORDERED: MAG SULF 2000 MG/WATER PREMIX 50 ML IV ONE (12:40)
[2019-04-11] MEDS ORDERED: MIDO10TA PO (13:19)
--- NOTE | 2019-04-11 13:29 | NUR ---
CONTACTED [facility] AT [phone] TO CONFIRM FAX SENT. SHE STATED SHE DID NOT GET IT YET. PROVIDED ME WITH ANOTHER FAX NUMBER [phone]. ORDER SENT. WILL FOLLOW UP.
[2019-04-11] MEDS ORDERED: LACT10CA1 PO (13:30)
[2019-04-11] MEDS ORDERED: ROC2I IV (13:30)
--- NOTE | 2019-04-11 13:59 | NUR ---
RECEIVED A CALL FROM [facility], HE CONFIRMED RECEIVING THE ORDERS SENT. HE ALSO REQUESTED IF WE CAN INCLUDE TO CONTINUE TPN AT HOME. DR. WILSON MADE AWARE. Addendum: 04/11/19 at 1632 by Yasmin Rubio ORDER FOR TPN FAXED.
--- NOTE | 2019-04-11 14:20 | NUR ---
CONTACTED [facility] AT [phone] REGARDING SENT REFERRALS. SHE STATED THAT SHE WILL SEND A MESSAGE TO THEIR INTAKE. PROVIDED HER WITH MY CONTACT INFO.
--- NOTE | 2019-04-11 16:25 | NUR ---
CONFIRMED WITH CM REJI THAT PT IS GOOD TO GO HOME, TPN AND IV ABX HAVE BEEN SET UP WITH HOME HEALTH BY [facility].
--- NOTE | 2019-04-11 16:28 | NUR ---
CONTACTED [facility], SHE STATED THEY ACCEPTED THE PATIENT. CONTACTED [facility] AT [phone] [phone] TO FOLLOW UP TPN ORDER FAXED, NO ANSWER. LEFT MESSAGE.
--- NOTE | 2019-04-11 16:40 | NUR ---
CONTACTED M[facility] AGAIN, NO ANSWER. LEFT MESSAGE
--- NOTE | 2019-04-11 16:43 | NUR ---
PER REJI OF [facility], THEY WILL DELIVER THE TPN TOMORROW AND THE ANTIBIOTIC TONIGHT. CHARGE NURSE LLOYD AND DR. WILSON MADE AWARE.
--- NOTE | 2019-04-11 16:48 | NUR ---
PT NOTIFIED THAT SHE WILL BE RECEIVING HER IV ROCEPHIN DELIVERY TONIGHT, AND TPN DELIVERY TOMORROW, PER BOAT REPAIRER.
--- NOTE | 2019-04-11 17:00 | NUR ---
PT HAS DISCHARGED. SHE WAS INSTRUCTED ON HER DISCHARGE PRESCRIPTIONS AND HOME HEALTH FOLLOW UPS. PICC LINE WAS LEFT IN FOR IV ABX AND TPN HOME INFUSION. WRIST BANDS WERE REMOVED. PT LEFT WITH ALL HER BELONGINGS IN STABLE CONDITION WITH HER .
[2019-04-11] MEDS ORDERED: DEXTROSE IV SCH ×4 (20:00)
[2019-04-11] MEDS ORDERED: MULTIVITAMIN IV SCH ×4 (20:00)
[2019-04-11] MEDS ORDERED: AMINO ACIDS IV SCH ×4 (20:00)
[2019-04-11] MEDS ORDERED: [UNRECOGNIZED DRUG - OTHER] IV SCH ×4 (20:00)
== END 2019-04-11 17:00 | disposition home health service (06) | DRG 871 ==
LOC: MED 22:04 → MTU 04-09 00:15
PROVIDERS: ADMIT General Practice; ATTEND General Practice
PROC: 02HV33Z Insertion of Infusion Device into Superior Vena Cava, Percutaneous Approach (ICD-10-PCS; principal; 2019-04-10)
DX: A41.9 Sepsis, unspecified organism (principal); E43 Unspecified severe protein-calorie malnutrition; G90.3 Multi-system degeneration of the autonomic nervous system; E83.42 Hypomagnesemia; E03.9 Hypothyroidism, unspecified; M32.9 Systemic lupus erythematosus, unspecified; B96.89 Other specified bacterial agents as the cause of diseases classified elsewhere; I95.9 Hypotension, unspecified; Z68.20 Body mass index [BMI] 20.0-20.9, adult; Z88.5 Allergy status to narcotic agent; Z88.0 Allergy status to penicillin; Z88.2 Allergy status to sulfonamides; Z79.899 Other long term (current) drug therapy; Z90.710 Acquired absence of both cervix and uterus; Z90.49 Acquired absence of other specified parts of digestive tract
CPT/HCPCS: 36415; 70450; 71045; 74018; 80048; 80053; 80305; 81003; 82150; 82948; 83036; 83605; 83690; 83735; 83880; 84100; 84439; 84443; 84484; 85025; 85610; 85730; 87040; 87070; 87081; 87086; 87186; 93005; 93880; 96365; 96375; 97110; 97116; 97161-GP; 97530; 99285; A9153; C1751; C1758; C9113; J0696; J1170; J1644; J1815; J1956; J2185; J2405; J3010; J3370; J3475; J7030; J7042; J7060; Q0092

== ENCOUNTER 2019-04-15 16:53 | Emergency (ER) | payer BC ==
[~2019-04-15] VITALS: Ht 170.2 cm; Wt 57.2 kg
[~2019-04-15 16:53] MED LIST: ALPR1TAB2 PO; BEN10 PO; BISA-213 RC; DOCU1TAB73 PO; GABA300C PO; HYDR2TAB6 PO; LACT10CA1 PO; MAGN400S60 PO; MIDO10TA PO; MIRABULK PO; MULT-153 PO; NA P135N RC; ONDA8TAB PO; ROC2I IV; TIZA4CAP PO; [UNRECOGNIZED DRUG - CODE] PO; [UNRECOGNIZED DRUG - CODE] SL
[2019-04-15 16:59] VITALS: BP 115/79
--- NOTE | 2019-04-15 17:25 | NUR ---
BIBA FOR FEVER TMAX 103 AT HOME, GENERALIZED BODY ACHES, N/V SINCE LAST NIGHT. PT HAS ILEOSTOMY TAKE DOWN SURGERY AT [facility] THE [facility] AND WAS ADMITTED A WEEK LATER FOR SEPSIS AT [facility]. PT HAS HX OF LUPUS. PICC LINE TO RT UPPER ARM. LUNGS CTAB. SLIGHTLY TACHYCARDIC. Addendum: 04/15/19 at 1932 by CHACHO ADMITTED LAST WEEK FOR SEPSIS AT [facility] PER PATIENT
[2019-04-15] MEDS ORDERED: NACL 0.9% 2,000 ML IV ONE (18:10)
[2019-04-15] MEDS ORDERED: ONDANSETRON 4 MG/2 ML VIAL IVP ONE (18:10)
[2019-04-15] MEDS ORDERED: fentaNYL 0.05 MG/ML VIAL IVP ONE ×2 (18:10→20:00)
[2019-04-15] MEDS ORDERED: ACETAMINOPHEN 325 MG TAB PO ONE (18:10)
--- NOTE | 2019-04-15 18:19 | NUR ---
XRAY AT BEDSIDE
[2019-04-15 18:59] LABS: BASOPHILS % (AUTO) 0.1 % (0.0-2.0); EOSINOPHILS % (AUTO) 0.5 % (0.0-4.0); HEMATOCRIT 34.7 % (36-48); HEMOGLOBIN 11.1 g/dL (12.0-16.0); LYMPHOCYTES # (AUTO) 0.4 K/uL (2.5-16.5); LYMPHOCYTES % (AUTO) 3.8 % (20.5-51.1); MEAN CORPUSCULAR HEMOGLOBIN 27 pg (27-31); MEAN CORPUSCULAR HGB CONC 32 g/dL (33-37); MEAN CORPUSCULAR VOLUME 84.6 fL (80-94); MONOCYTES # (AUTO) 0.1 K/uL (0.8-1.0); MONOCYTES % (AUTO) 1.3 % (1.7-9.3); NEUTROPHILS # (AUTO) 9.9 K/uL (1.8-7.7); NEUTROPHILS % (AUTO) 94.3 % (42.2-75.2); PLATELET COUNT (AUTO) 234 K/uL (140-450); RED BLOOD CELL COUNT(AUTO) 4.11 MIL/uL (4.20-5.40); RED CELL DISTRIBUTION WIDTH 15.7 % (11.6-13.7); WHITE BLOOD COUNT (AUTO) 10.5 K/uL (4.8-10.8)
--- NOTE | 2019-04-15 19:06 | NUR ---
REPORT GIVEN TO ANA LILIA SUN. PT IN STABLE CONDITION.
--- NOTE | 2019-04-15 19:10 | NUR ---
RECEIVED REPORT FROM ANA LILIA DE [place] SANTOS
--- NOTE | 2019-04-15 19:28 | NUR ---
PT C/O 10/10 PAIN FROM ABD TO LEGS. PT WAS GIVEN FENTANYL W/ NO PAIN RELIEF. STATES SHE TAKES DILAUDID 6X/DAY AT HOME. DR BLACK MADE AWARE.
--- NOTE | 2019-04-15 19:32 | NUR ---
DR BLACK AT BEDSIDE.
[2019-04-15 19:38] LABS: ANION GAP 14.1 (8-16); CARBON DIOXIDE 25.2 mmol/L (21-32); POTASSIUM 3.3 mmol/L (3.5-5.1)
[2019-04-15 19:39] LABS: CREATININE 0.7 mg/dL (0.6-1.3)
[2019-04-15 19:53] LABS: TOTAL BILIRUBIN 0.4 mg/dL (0.0-1.0)
[2019-04-15 19:54] LABS: ALBUMIN 3.2 g/dL (3.4-5.0)
--- NOTE | 2019-04-15 20:19 | NUR ---
Golden gaston in [facility] - 04/15/19 at [email or web address] PT [address] VIA WHEELCHAIR.
--- NOTE | 2019-04-15 20:21 | NUR ---
PT TAKEN TO CT
--- NOTE | 2019-04-15 20:28 | NUR ---
PT RETURN FROM CT
--- NOTE | 2019-04-15 21:14 | NUR ---
PT TO RESTROOM VIA WHEELCHAIR
[2019-04-15 21:25] LABS: APPEARANCE,URINE CLEAR (CLEAR); BILIRUBIN,URINE NEGATIVE (NEGATIVE); BLOOD, URINE NEGATIVE (NEGATIVE); COLOR,URINE YELLOW (YELLOW); LEUKOCYTE ESTERASE ,URINE NEGATIVE (NEGATIVE); NITRITE, URINE NEGATIVE (NEGATIVE); PH,URINE 7.5 (5.0-9.0); UGLUCOSE NEGATIVE (NEGATIVE)
--- NOTE | 2019-04-15 21:52 | NUR ---
PT STATES SHE HAS NO PAIN RELIEF FROM FENTANYL , REQUESTS A DIFFERENT PAIN MED, DR BLACK MADE AWARE.
[2019-04-15] MEDS ORDERED: KETOROLAC 30 MG/ML VIAL IVP ONE (21:55)
[2019-04-15 22:38] VITALS: BP 117/74
--- NOTE | 2019-04-15 22:38 | NUR ---
Patient discharged with v/s stable. Written and verbal after care instructions given and explained. Patient verbalized understanding. Ambulatory with to home. All questions addressed prior to discharge. Advised to follow up with PMD. LET WITH SON.
== END 2019-04-15 22:38 | disposition home or self-care (01) ==
LOC: MED 16:53
DX: R50.9 Fever, unspecified (principal); R52 Pain, unspecified; R11.10 Vomiting, unspecified; Z98.890 Other specified postprocedural states; Z79.899 Other long term (current) drug therapy; Z88.0 Allergy status to penicillin; Z88.2 Allergy status to sulfonamides; Z88.5 Allergy status to narcotic agent
CPT/HCPCS: 36415; 71045; 74176; 80053; 81003; 81025; 83605; 83690; 85025; 87040; 87086; 96361; 96374; 96375; 96376; 99284; J1885; J2405; J3010; J7030; Q0092

== ENCOUNTER 2019-04-29 19:30 | Inpatient (IN) | payer BC ==
[~2019-04-29] VITALS: Ht 170.2 cm; Wt 53.1 kg
--- NOTE | 2019-04-29 19:30 | NUR ---
JULIEN TEJADA. TAKEN TO BED 1
[2019-04-29 19:36] VITALS: BP 107/54
[2019-04-29] MEDS ORDERED: IBUPROFEN 600 MG TAB PO ONE (19:40)
--- NOTE | 2019-04-29 19:42 | NUR ---
Dr. Mario examining patient.
[2019-04-29] MEDS ORDERED: VANCOMYCIN 1,000 MG in DEXTROSE 5% 250 ML IV ONE (19:55)
[2019-04-29] MEDS ORDERED: CEFEPIME 1,000 MG in DEXTROSE 5% 50 ML IV ONE (19:55)
[2019-04-29] MEDS ORDERED: CEFEPIME 1,000 MG VIAL ONE (20:06)
[2019-04-29 20:16] LABS: BASOPHILS % (AUTO) 0.3 % (0.0-2.0); EOSINOPHILS # (AUTO) 0.2 K/uL (0-0.4); EOSINOPHILS % (AUTO) 3.5 % (0.0-4.0); HEMATOCRIT 25.9 % (36-48); HEMOGLOBIN 8.4 g/dL (12.0-16.0); LYMPHOCYTES # (AUTO) 0.3 K/uL (2.5-16.5); LYMPHOCYTES % (AUTO) 5.5 % (20.5-51.1); MEAN CORPUSCULAR HEMOGLOBIN 27 pg (27-31); MEAN CORPUSCULAR HGB CONC 33 g/dL (33-37); MEAN CORPUSCULAR VOLUME 81.5 fL (80-94); MONOCYTES % (AUTO) 0.8 % (1.7-9.3); NEUTROPHILS # (AUTO) 5.2 K/uL (1.8-7.7); NEUTROPHILS % (AUTO) 89.9 % (42.2-75.2); PLATELET COUNT (AUTO) 101 K/uL (140-450); RED BLOOD CELL COUNT(AUTO) 3.18 MIL/uL (4.20-5.40); RED CELL DISTRIBUTION WIDTH 16.7 % (11.6-13.7); WHITE BLOOD COUNT (AUTO) 5.8 K/uL (4.8-10.8)
--- NOTE | 2019-04-29 20:52 | NUR ---
44 Y/O BIB [facility]. CALLED EMS DUE TO PT BEING MORE CONFUSED AND FEVER AT 104. STATES PT HAD ILLEOSTOMY TAKEN OUT ON FEBRUARY AND HAS BEEN HAVING SYMPTOMS OF INFECTION SINCE THEN. MULTIPLE ADMISSIONS DUE TO SAME REASON. PT PRESENTS DIAPHORETIC DURING ASSESSMENT. UNABLE TO GIVE ANY VIABLE INFORMATION ABOUT WELL BEING, AAOX1 (NAME). PT IS TACHY. SEPSIS PROTOCOL STARTED. ERMD AWARE. WILL CONTINUE TO MONITOR.
[2019-04-29 21:15] LABS: AMYLASE 42 U/L (25-115); ANION GAP 13.7 (8-16); CARBON DIOXIDE 24.6 mmol/L (21-32); CREATININE 1.1 mg/dL (0.6-1.3); LIPASE 71 U/L (73-393); POTASSIUM 3.3 mmol/L (3.5-5.1)
[2019-04-29] MEDS ORDERED: VANCOMYCIN 1,000 MG VIAL ONE (21:20)
[2019-04-29 21:21] LABS: ALBUMIN 2.3 g/dL (3.4-5.0); TOTAL BILIRUBIN 0.6 mg/dL (0.0-1.0)
--- NOTE | 2019-04-29 21:33 | NUR ---
PT TAKEN TO CT
[2019-04-29] MEDS ORDERED: KETOROLAC 15 MG/ML VIAL IVP ONE (21:35)
--- NOTE | 2019-04-29 21:51 | NUR ---
PT RETURN FROM CT
[2019-04-29] MEDS ORDERED: HYDROmorphone PFS 2 MG/ML SYR IVP ONE (21:55)
[2019-04-29 23:12] LABS: APPEARANCE,URINE SL CLOUDY (CLEAR); BILIRUBIN,URINE NEGATIVE (NEGATIVE); BLOOD, URINE 1+ (NEGATIVE); COLOR,URINE YELLOW (YELLOW); LEUKOCYTE ESTERASE ,URINE NEGATIVE (NEGATIVE); NITRITE, URINE NEGATIVE (NEGATIVE); UGLUCOSE NEGATIVE (NEGATIVE)
[2019-04-29] MEDS ORDERED: ZOLPIDEM 5 MG TAB PO PRN (23:20)
[2019-04-29] MEDS ORDERED: DOCUSATE SODIUM 100 MG GELCAP PO PRN (23:20)
[2019-04-29] MEDS ORDERED: ONDANSETRON 4 MG/2 ML VIAL IM/IVP PRN (23:20)
[2019-04-29 23:31] LABS: WBC,URINE 0-5 /HPF (0-5)
--- NOTE | 2019-04-29 23:40 | NUR ---
RECEIVED PT FROM ED VIA PARISA, PT AOX 3, SOME LETHARGY NOTED, AMBULATORY. PT HAD A HIGH TEMPERATURE PER ED 101.4 . GIVEN MEDS FOR FEVER AT THE ED. ON TELEMONITOR. MRSA SWAB DONE. WAS ADMITTED HERE LAST APR 15, 2019. PER PATIENT PICC LINE R UPPER ARM INSERTED LAST ADMISSION HERE, DON'T REMEMBER DATE. PT WITH LEFT FOREARM G 22, PATENT AND INTACT. PLACED ON LOW BED, WILL CONTINUE TO MONITOR PT
--- NOTE | 2019-04-29 23:41 | NUR ---
PT HAD HX TAKEN BY DR. KRAUSE AT BEDSIDE, WITH RN BEDSIDE, VITALS TAKEN BP LOW 90/70, HR [address] DR. STRATTON AWARE.
[2019-04-29 23:43] LABS: PROTHROMBIN TIME 10.9 secs (10.8-13.4)
--- NOTE | 2019-04-29 23:45 | NUR ---
PT ADMITTED TO [facility] RM 120B. TRANSFERRED PT VIA [facility]RI[facility] MCCAULEY. REPORT GIVEN TO ELI SUNG. PT CARE TRANSFERRED TO RECEIVING RN.
[2019-04-29 23:46] LABS: BARBITURATE, URINE POS. ng/ml (NEG <=200); BENZODIAZEPINE, URINE POS. ng/mL (NEG <=200); CANNABINOID, URINE NEG. ng/mL (NEG <=50); COCAINE, URINE NEG. ng/mL (NEG <=300); OPIATE, URINE POS. ng/mL (NEG <=2000); PHENCYCLIDINE SCREEN,URINE NEG. ng/mL (NEG <=25)
--- NOTE | 2019-04-29 23:55 | NUR ---
ASKED PT IF SHE IS WILLING TO GET FLU VAX PT REFUSED.
[2019-04-30 00:03] LABS: FREE T4 (FREE THYROXINE) 1.21 ng/dL (0.76-1.46); MAGNESIUM 1.4 mg/dL (1.8-2.4); PHOSPHORUS 1.3 mg/dL (2.5-4.9); THYROID STIMULATING HORMONE 0.49 uIU/mL (0.34-3.74)
[2019-04-30 00:05] VITALS: BP 97/60
--- NOTE | 2019-04-30 00:15 | NUR ---
SPOKE TO TRAY RE: CT ABD/PELVIS, NOT DONE PER JOCE NO ORDER. PER JOCE IT SHOULD HAVE BEEN DONE EARLIER AT THE ED ALONG WITH TH CT ANGIO CHEST W/ OE W/O CONTRAST .WILL INFORM DR. HEATH
--- NOTE | 2019-04-30 00:15 | NUR ---
INFORMED BY LAB CRITICAL RESULT OF TROPONIN 0.07. DR. STRATTON INFORMED
[2019-04-30] MEDS: NACL 0.9% 1,000 ML IV SCH ×3 (00:46→19:19)
[2019-04-30] MEDS ORDERED: ONDANSETRON 4 MG TAB PO SCH (00:55)
[2019-04-30] MEDS ORDERED: HYOSCYAMINE SULFATE 0.125 MG SL SCH (00:55)
[2019-04-30] MEDS ORDERED: HYDROmorphone 2 MG TAB PO SCH (00:55)
[2019-04-30] MEDS ORDERED: DICYCLOMINE HYDROCHLORIDE PO SCH (00:55)
[2019-04-30] MEDS ORDERED: SODIUM PHOSPHATE 118 ML ENEM RC SCH (00:55)
[2019-04-30] MEDS ORDERED: ALPRAZolam 0.5 MG TAB PO SCH (00:55)
[2019-04-30] MEDS ORDERED: RIZATRIPTAN BENZOATE 10 MG PO SCH (00:55)
[2019-04-30] MEDS ORDERED: TPN PER PHARMACY MC PRN (01:00)
[2019-04-30] MEDS ORDERED: HEPARIN PER PHARMACY MC PRN (01:15)
[2019-04-30] MEDS ORDERED: hePARIN / DEXT 5% PREMIX 250 ML IV SCH ×2 (01:15→01:50)
[2019-04-30] MEDS ORDERED: MAG SULF 2000 MG/WATER PREMIX 100 ML IV SCH (01:20)
[2019-04-30] MEDS ORDERED: POTASSIUM PHOSPHATE 15 MM in NACL 0.9% 250 ML IV SCH (01:20)
[2019-04-30] MEDS ORDERED: GABAPENTIN 300 MG CAP PO SCH (01:20)
--- NOTE | 2019-04-30 01:25 | NUR ---
PROAMANTINE ( MIDORINE) CANNOT BE PULLED OUT, INFORMED REGISTERED DIET TECHNICIAN. HE INFORMED THAT PHARMACY WILL ADJUST IT AND THAT PT ORDERED IT FOR NOW BECAUSE OF LOW BP 90/50. WILL ADMINISTER MEDS
--- NOTE | 2019-04-30 01:29 | NUR ---
PT HAS LEFT SIDED NERVEPAIN, DR. STRATTON SAID TO GIVE GABAPENTIN NOW
--- NOTE | 2019-04-30 01:36 | NUR ---
DISCARD EKG NOTES 01305/10/19.. NEW NOTE INPUTTED ON 8487 04/29/19
[2019-04-30] MEDS ORDERED: VANCOMYCIN PER PHARMACY MC PRN (01:40)
[2019-04-30] MEDS ORDERED: LEVOFLOXACIN 750 MG/D5W PREMIX 150 ML IV SCH (01:45)
--- NOTE | 2019-04-30 01:50 | NUR ---
HEPARIN DRIP ORDERED, PLT 101, WILL GIVE HEPARIN DRIP
--- NOTE | 2019-04-30 01:50 | NUR ---
PHARMACY CALLED TO INFORM TO PUT IN THE INDICATION FOR XANAX AND DILAUDID SO THAT THEY COULD VERIFY IT.
--- NOTE | 2019-04-30 01:57 | NUR ---
PT C/O HEADACHE, WAITING FOR VERIFICATION FROM PHARMACY DILAUDID, AND FROM DR TO PUT THE INDICATION
[2019-04-30] MEDS ORDERED: HYDROmorphone 1 MG/ML AMP IVP SCH (02:00)
[2019-04-30] MEDS: MIDODRINE 5 MG TAB PO SCH ×4 (02:06→19:13)
--- NOTE | 2019-04-30 02:16 | NUR ---
PT WANTS HER TANO, ASKED PERMISSION FROM DR. DELACRUZ. TO GIVE THE TANO AFTER 2PM PER PROTOCOL. GIVEN TANO NOW Addendum: 04/30/19 at 0217 by lOivia Chauhan RN GIVEN TANO AT 021
[2019-04-30] MEDS: ACETAMINOPHEN 325 MG TAB PO PRN (02:33)
[2019-04-30] MEDS ORDERED: SODIUM FERRIC GLUCONATE 125 MG in NACL 0.9% 100 ML IV SCH (03:25)
--- NOTE | 2019-04-30 03:25 | NUR ---
FERLECIT NOT AVAILABLE IN THE [facility] FOR BOTH MED SURG AND TELE., INFORMED CHARGE NURSE AND VALET MANAGER, CONFIRMED WE DONT HAVE IT IN THE HOSPITAL TONIGHT. WILL ENDORSE TO NEXT SHIFT
[2019-04-30 04:05] VITALS: BP 122/58
--- NOTE | 2019-04-30 04:15 | NUR ---
INSERTED AN IV LINE ON THE LEFT HAND. G 24, WILL USE FOR HEPARIN BOLUS AND DRIP ORDER
--- NOTE | 2019-04-30 04:25 | NUR ---
CALLED PCP, ONLY LEFT A MESSAGE ERICA MEDRANO [phone]
--- NOTE | 2019-04-30 04:30 | NUR ---
ASKED PERMISSION FROM DR. BOYD IF WE COULD DRAW BLOOD FROM THE PICC LINE BEFORE WE D/C IT. SAID OK WITH
--- NOTE | 2019-04-30 04:33 | NUR ---
AMEND TO RIGHT HAND Addendum: 04/30/19 at 0435 by Olivia Chauhan RN INSERTED AN IV LINE ON THE LEFT HAND. G 24, WILL USE FOR HEPARIN BOLUS AND DRIP ORDER
[2019-04-30] MEDS ORDERED: metroNIDAZOLE 500 MG/NS PREMIX 100 ML IV SCH (05:00)
--- NOTE | 2019-04-30 05:40 | NUR ---
GOT A CRITICAL RESULT OF BLOOD CULTURE GRAM NEG RODS; AEROBIC AND ANAEROBIC POSITIVE. DR. HEATH INFORMED
--- NOTE | 2019-04-30 06:10 | NUR ---
TOOK OUT R UPPER ARM PICC LINE, LINE INTACT, APPROX 25 INCHES LONG, TIP OF THE CATHETER PLACED IN THE CONTAINER AND SENT TO THE LABORATORY
[2019-04-30 07:10] LABS: BASOPHILS % (AUTO) 0.2 % (0.0-2.0); EOSINOPHILS % (AUTO) 0.6 % (0.0-4.0); HEMATOCRIT 25.3 % (36-48); HEMOGLOBIN 8.2 g/dL (12.0-16.0); LYMPHOCYTES # (AUTO) 0.5 K/uL (2.5-16.5); LYMPHOCYTES % (AUTO) 6.8 % (20.5-51.1); MEAN CORPUSCULAR HEMOGLOBIN 26 pg (27-31); MEAN CORPUSCULAR HGB CONC 32 g/dL (33-37); MEAN CORPUSCULAR VOLUME 81.3 fL (80-94); MONOCYTES # (AUTO) 0.4 K/uL (0.8-1.0); MONOCYTES % (AUTO) 5.2 % (1.7-9.3); NEUTROPHILS # (AUTO) 6.2 K/uL (1.8-7.7); NEUTROPHILS % (AUTO) 87.2 % (42.2-75.2); PLATELET COUNT (AUTO) 97 K/uL (140-450); RED BLOOD CELL COUNT(AUTO) 3.11 MIL/uL (4.20-5.40); RED CELL DISTRIBUTION WIDTH 17.1 % (11.6-13.7); WHITE BLOOD COUNT (AUTO) 7.1 K/uL (4.8-10.8)
--- NOTE | 2019-04-30 07:20 | NUR ---
PT AWAKE, ALERT ORIENTED, PT STILL IN PAIN, INFORMED DR. MATA AT 0530 AM THAT PAIN MEDS FOLLOWED UP W/ DR. HEATH SINCE EARLY AM. NOT YET IN THE SYSTEM. DR. HEALY WILL HAVE TO ASSESS AND DISCUSS FIRST RE: PAIN MEDS. WILL ENDORSE TO NEXT SHIFT
[2019-04-30 07:25] LABS: CHOL/HDL RATIO 13.5 (1-4.5)
--- NOTE | 2019-04-30 07:25 | NUR ---
RECEIVED REPORT FROM AUTOMATION DEVELOPER NURSE. PATIENT IS AWAKE, ALERT AND ORIENTED X4. PATIENT REPORTING PAIN, WILL GIVE PAIN MEDICATION ORDERED. SIDE RAILS UP. RIGHT IV INTACT AND PATENT. NO EDEMA NOTED. LEFT AC IV INTACT AND PATENT. CURRENTLY ON IVF NS INFUSING AT 100ML/HR. CALL LIGHT WITHIN REACH. WILL CONTINUE TO MONITOR. Addendum: 04/30/19 at 1104 by Maria G Harris RN ADDITION TO ABOVE NOTE, ON THE RIGHT HAND IV SITE, HEPARIN DRIP RUNNING AT 650UNITS/HR.
[2019-04-30 07:26] LABS: ANION GAP 10.4 (8-16); CARBON DIOXIDE 27.8 mmol/L (21-32); CREATININE 0.9 mg/dL (0.6-1.3); MAGNESIUM 1.7 mg/dL (1.8-2.4); PHOSPHORUS 4.2 mg/dL (2.5-4.9); POTASSIUM 4.2 mmol/L (3.5-5.1)
--- NOTE | 2019-04-30 07:28 | NUR ---
PATIENT'S MORNING LABS SHOWED PLATELET IS 97. HEPARIN DRIP WAS STOPPED MD AWARE.
[2019-04-30] MEDS: HYDROmorphone 1 MG/ML AMP IVP PRN ×3 (07:53→20:57)
[2019-04-30 08:00] VITALS: BP 113/71
--- NOTE | 2019-04-30 08:04 | NUR ---
PATIENT HAS BEEN SCREENED AND CATEGORIZED HIGH NUTRITION RISK. PATIENT WILL BE SEEN WITHIN 1-2 DAYS OF ADMISSION. 04/30/19-05/01/[address]
[2019-04-30] MEDS ORDERED: DICYCLOMINE HCL LIQUID 10 MG/5 ML UDC PO PRN (08:05)
[2019-04-30] MEDS ORDERED: DOCUSATE SODIUM PO SCH (09:00)
[2019-04-30] MEDS: BISACODYL 10 MG SUPP RC SCH (09:00)
[2019-04-30] MEDS: MAGNESIUM HYDROXIDE 2400 MG/30 ML UDC PO SCH (09:00)
[2019-04-30] MEDS ORDERED: NON-FORMULARY ITEM (Multivitamin (Multi-Vitamins) 1 TAB) PO SCH (09:00)
[2019-04-30] MEDS ORDERED: NON-FORMULARY ITEM (Lactobacillus Rhamnosus GG (Culturelle) 10 Billion) PO SCH (09:00)
[2019-04-30] MEDS ORDERED: SENNOSIDES PO SCH (09:00)
[2019-04-30] MEDS ORDERED: NON-FORMULARY ITEM (Bisacodyl (Dulcolax) 10 MG) RC SCH (09:00)
[2019-04-30] MEDS ORDERED: TIZANIDINE HCL PO SCH (09:00)
[2019-04-30] MEDS: POLYETHYLENE GLYCOL 17 GM/PKT PO SCH (09:00)
[2019-04-30] MEDS ORDERED: MIDODRINE HCL 10 MG PO SCH (09:00)
[2019-04-30] MEDS ORDERED: ECOTRIN 81 MG TABEC PO SCH (09:00)
[2019-04-30] MEDS: SODIUM FERRIC GLUCONATE 125 MG in NACL 0.9% 100 ML IV SCH (09:14)
[2019-04-30] MEDS: LACTOBACILLUS RHAMNOSUS GG 1 EACH CAP PO SCH (09:22)
--- NOTE | 2019-04-30 10:20 | NUR ---
FOLLOWED UP WITH PICC LINE SERVICE, SPOKE WITH LEANNA, STATED MARLEN-PICC LINE RN WILL CALL FOR ETA. RAMYA-ANA LILIA MADE AWARE.
--- NOTE | 2019-04-30 11:00 | NUR ---
MARLEN, PICC LINE NURSE CALLED AND INFORMED THAT SHE IS STILL FINISHING 6 PTS IN ANOTHER HOSPITAL AND WILL CALL AGAIN TO WHAT TIME OF ARRIVAL TODAY.
[2019-04-30] MEDS ORDERED: ONDANSETRON 4 MG TAB PO PRN (11:10)
[2019-04-30 12:00] VITALS: BP 93/52
[2019-04-30] MEDS ORDERED: MAG SULF 2000 MG/WATER PREMIX 50 ML IV SCH ×3 (12:00→16:00)
--- NOTE | 2019-04-30 12:05 | NUR ---
PT WAS STARTED ON IVPB MERREM AND ORAL MEDICATION WAS GIVEN WELL. WILL MONITOR PT.
[2019-04-30] MEDS ORDERED: MEROPENEM 1,000 MG in NACL 0.9% 100 ML IV SCH (13:00)
--- NOTE | 2019-04-30 13:57 | NUR ---
*S.T. Note* Order for bedside swallow eval received, chart reviewed. Spoke w/ ANA LILIA Guerrero who initially cleared this clinician to see pt for eval. However, it was noted by this clinician that pt was NPO for pending abd US. Introduced self to pt and obtained additional history re: TPN and oral intake. Will hold eval at this time and complete tomorrow AM. Pt and ANA LILIA Guerrero communicated understanding/agreement. Thank you.
--- NOTE | 2019-04-30 14:40 | NUR ---
PT C/O PAIN RATE OF 8/10 AND PAIN MEDICATION WAS GIVEN VIA IV PUSH. WILL RE-ASSESS PAIN AND MONITOR PT.
[2019-04-30] MEDS ORDERED: HYOSCYAMINE 0.125 MG TAB SL PRN (14:45)
--- NOTE | 2019-04-30 15:25 | NUR ---
PICC LINE INSERTION WAS STARTED AND TIME OUT WAS DONE.
--- NOTE | 2019-04-30 15:46 | NUR ---
04/30/19 RD INITIAL ASSESSMENT COMPLETED PLEASE REFER TO NUTRITION ASSESSMENT UNDER CARE ACTIVITY FOR ESTIMATED NUTRITIONAL NEEDS. 1. RECOMMEND INCREASING TPN INFUSION WHEN MEDICALLY APPROPRIATE TO MEET 75% OF ESTIMATED NEEDS 2. CONTINUE TPN D10% AND AA 4.25% -THIS WILL PROVIDE 367 KCAL AND 30 GRAM OF PROTEIN WHICH MEETS <75% OF ESTIMATED NEEDS 3 . CONTINUE REGULAR DIET TOLERATED 4. RD TO FOLLOW-UP 2-3 DAYS, HIGH RISK MIRTHA BARRAZA, RD
[2019-04-30 16:00] VITALS: BP 126/79
--- NOTE | 2019-04-30 16:17 | NUR ---
MAGNESIUM 2GM IV STARTED TO PATIENT FOR MG LEVEL 1.7. WILL MONITOR PATIENT.
--- NOTE | 2019-04-30 18:00 | NUR ---
PICC LINE INSERTION WAS FINISHED ON THE LEFT UA, X-RAY DONE AND CONFIRMED PLACEMENT.
--- NOTE | 2019-04-30 19:20 | NUR ---
ENDORSED PT TO MATTRESS MAKER NURSE, ARIC FOR CONTINUITY OF CARE.
--- NOTE | 2019-04-30 19:20 | NUR ---
RECEIVED REPORT FROM AM NURSE. PT AT BED, AWAKE, LETHARGIC, PERRLA 3MM, BRISK, CALM, COOPERATIVE, PT BREATHING REGULARLY ON ROOM AIR, LUNG SOUNDS CLEAR THROUGHOUT, HEART RATE REGULAR, S1S2 PRESENT, CAP REFILL <3S, PULSES 2+ BILATERAL UPPER AND LOWER EXTREMITIES, ABDOMEN, SOFT, ROUND, NONDISTENDED, NONTENDER, BLADDER, SOFT, ROUND, NONDISTENDED, NONTENDER, PT HAS GENERALIZED WEAKNESS, PT HAS LEFT UPPER ARM PICC LINE RUNNING NS AT 100 ML/HR, HOB 30 DEGREES, SIDERAILS UP X2, BED AT LOWEST POSITION.
[2019-04-30 20:00] VITALS: BP 109/67
[2019-04-30] MEDS ORDERED: DEXTROSE IV SCH ×3 (20:00)
[2019-04-30] MEDS ORDERED: INSULIN LISPRO SLIDING SCALE 100 UNITS/ML VIAL SUBQ PRN (20:00)
[2019-04-30] MEDS ORDERED: AMINO ACIDS 8.5% IV SCH ×3 (20:00)
[2019-04-30] MEDS ORDERED: MULTIVITAMIN IV SCH ×3 (20:00)
[2019-04-30] MEDS: ATORVASTATIN 20 MG TAB PO SCH (20:55)
[2019-04-30] MEDS: tiZANidine 4 MG TAB PO PRN (20:56)
[2019-04-30] MEDS: GABAPENTIN 300 MG CAP PO SCH (20:56)
[2019-04-30] MEDS: MEROPENEM 1,000 MG in NACL 0.9% 100 ML IV SCH (20:58)
--- NOTE | 2019-04-30 21:00 | NUR ---
MEDICATIONS GIVEN. PT COMPLAINS OF PAIN AT HEAD AND ABDOMEN. DILAUDID GIVEN. WILL CONTINUE TO MONITOR.
--- NOTE | 2019-04-30 23:07 | NUR ---
PT AT BED EYES CLOSED, BREATHING REGULARLY, WILL CONTINUE TO MONITOR.
[2019-05-01] VITALS (7 sets, daily range): BP systolic 110–139; BP diastolic 53–83
[2019-05-01] MEDS: ALPRAZolam 0.5 MG TAB PO PRN ×2 (00:36→22:27)
[2019-05-01] MEDS: BLOOD GLUCOSE MONITORING 1 DEV DEV MC SCH ×4 (00:38→18:30)
--- NOTE | 2019-05-01 01:27 | NUR ---
PT AT BED EYES CLOSED, BREATHING REGULARLY, WILL CONTINUE TO MONITOR.
[2019-05-01] MEDS: NACL 0.9% 1,000 ML IV SCH ×2 (02:50→14:44)
[2019-05-01] MEDS: HYDROmorphone 1 MG/ML AMP IVP PRN ×5 (02:50→22:26)
--- NOTE | 2019-05-01 03:00 | NUR ---
PT AWAKE AT BED, BREATHING REGULARLY ON ROOM AIR, COMPLAINING OF HEADACHE, ADMINISTERED DILAUDID. WILL CONTINUE TO MONITOR.
--- NOTE | 2019-05-01 04:18 | NUR ---
ZOFRAN GIVEN FOR NAUSEA. PT TOLERATED WELL.
[2019-05-01 06:07] LABS: HEPATITIS A ANTIBODY IGM Negative (Negative); HEPATITIS B CORE AB TOTAL Negative (Negative); HEPATITIS B SURFACE ANTIBODY Non Reactive (.); HEPATITIS B SURFACE ANTIGEN Negative (Negative)
[2019-05-01] MEDS: MEROPENEM 1,000 MG in NACL 0.9% 100 ML IV SCH ×3 (06:15→21:09)
[2019-05-01] MEDS: MIDODRINE 5 MG TAB PO SCH ×4 (06:16→19:14)
[2019-05-01] MEDS: ACETAMINOPHEN 325 MG TAB PO PRN (06:28)
[2019-05-01 06:52] LABS: MAGNESIUM 1.8 mg/dL (1.8-2.4); PHOSPHORUS 3.4 mg/dL (2.5-4.9)
--- NOTE | 2019-05-01 07:00 | NUR ---
MEDICATIONS GIVEN. PT COMPLAINS OF HEADACHE, ADMINISTERED TYLENOL PO ORDERED. WILL CONTINUE TO MONITOR
--- NOTE | 2019-05-01 07:30 | NUR ---
CHANGE OF SHIFT GIVEN TO AM NURSE. PT AT STABLE CONDITION AT THIS TIME.
--- NOTE | 2019-05-01 07:35 | NUR ---
RECEIVED PT FROM FIELD TRAINING AGENT NURSE, ARIC, PT IS AWAKE AND LYING ON THE BED WITH SIDE RAILS UP AND CALL LIGHT WITHIN REACH, HAS A LEFT UA PICC LINE, DOUBLE LUMEN WITH NS INFUSING AT 100ML/HR, PT HAS A ARIC OF AN ILEOSTOMY SITE ON THE RT LOWER ABDOMEN, SKIN IS INTACT, AND DENIES PAIN. NO SIGN OF DISTRESS NOTED AND WILL MONITOR PT.
--- NOTE | 2019-05-01 07:52 | NUR ---
DR. MORELAND AND THE RESIDENT DOCTOR, DR. OROZCO CAME TO THE PT'S ROOM AND CHECKED ON PT. Addendum: 05/01/19 at 1021 by Yolanda Gilbert RN ABOVE NOTE IS NOT INTENDED FOR THE PT.
[2019-05-01 08:07] LABS: FERRITIN 266 ng/mL (15-150); FOLIC ACID > 20.00 ng/mL (>3.0)
[2019-05-01] MEDS: SODIUM FERRIC GLUCONATE 125 MG in NACL 0.9% 100 ML IV SCH (08:54)
[2019-05-01] MEDS: LACTOBACILLUS RHAMNOSUS GG 1 EACH CAP PO SCH (08:58)
--- NOTE | 2019-05-01 08:58 | NUR ---
PT IS AWAKE AND ORAL AND IVPB MEDICATIONS WERE GIVEN TO PT AND TOLERATED IT. WILL MONITOR PT.
[2019-05-01] MEDS: MAGNESIUM HYDROXIDE 2400 MG/30 ML UDC PO SCH (09:00)
[2019-05-01] MEDS: BISACODYL 10 MG SUPP RC SCH (09:00)
[2019-05-01] MEDS: POLYETHYLENE GLYCOL 17 GM/PKT PO SCH (09:00)
[2019-05-01 09:03] LABS: ANION GAP 10.9 (8-16); CARBON DIOXIDE 25.1 mmol/L (21-32); CREATININE 0.7 mg/dL (0.6-1.3)
--- NOTE | 2019-05-01 10:03 | NUR ---
*S.T. Note* Order for bedside swallow eval remains active. Chart notes reviewed. Spoke w/ ANA LILIA Guerrero who reported that pt is NPO today, pending CALEB scheduled for this evening at 1830. Pt denies any s/s aspiration or difficulty swallowing. Will reattempt completion of eval tomorrow, or appreciate cancelling order if no longer needed. Thank you. Time 1005 Addendum: 05/01/19 at 1042 by Fabiana AMBROCIO Time 1015 Discussed w/ Dr. Quiñonez over telephone re: necessity of bedside swallow eval. He expressed concern over recent GI problems and suspect aspirating on vomit. This clinician explained that purpose of bedside swallow eval by speech pathology determines an oral-pharyngeal dysphagia, and would not be helpful in determining whether pt aspirated vomit at some point. Dr. Quiñonez communicated understanding and agreed to DC order. ANA LILIA Guerrero notified.
[2019-05-01 11:57] LABS: BASOPHILS # (AUTO) 0.1 K/uL (0.00-0.22); EOSINOPHILS # (AUTO) 0.2 K/uL (0-0.4); EOSINOPHILS % (AUTO) 3.5 % (0.0-4.0); HEMATOCRIT 23.5 % (36-48); HEMOGLOBIN 7.6 g/dL (12.0-16.0); LYMPHOCYTES # (AUTO) 0.9 K/uL (2.5-16.5); LYMPHOCYTES % (AUTO) 14.2 % (20.5-51.1); MEAN CORPUSCULAR HEMOGLOBIN 27 pg (27-31); MEAN CORPUSCULAR HGB CONC 33 g/dL (33-37); MEAN CORPUSCULAR VOLUME 82.5 fL (80-94); MONOCYTES # (AUTO) 0.4 K/uL (0.8-1.0); MONOCYTES % (AUTO) 7.2 % (1.7-9.3); NEUTROPHILS # (AUTO) 4.5 K/uL (1.8-7.7); NEUTROPHILS % (AUTO) 74.1 % (42.2-75.2); PLATELET COUNT (AUTO) 122 K/uL (140-450); RED BLOOD CELL COUNT(AUTO) 2.85 MIL/uL (4.20-5.40); RED CELL DISTRIBUTION WIDTH 17.3 % (11.6-13.7)
--- NOTE | 2019-05-01 12:17 | NUR ---
PT IS AWAKE AND BP IS 138/69, PULSE IS 83, PROAMATINE WAS NOT GIVEN AND HELD, DR. BREEN INFORMED, IV MEDICATION WAS GIVEN VIA PIGGYBACK, BLOOD GLUCOSE CHECK DONE AND RESULT IS 88. BVWILL MONITOR PT
[2019-05-01 12:33] LABS: TRANSFERRIN 155 mg/dL (200-370)
--- NOTE | 2019-05-01 16:35 | NUR ---
PATIENT'S TPN STOPPED NOW. PATIENT WILL BE GOING FOR TRANSESOPHAGEAL ECHOCARDIOGRAPHY IN ICU. PATIENT IS STABLE, AWAKE AND ALERT AT THIS TIME.
--- NOTE | 2019-05-01 16:41 | NUR ---
PATIENT IS OFF THE UNIT FOR TRANSESOPHAGEAL ECHOCARDIOGRAPHY.
[2019-05-01] MEDS ORDERED: fentaNYL 0.05 MG/ML VIAL ONE ×2 (16:55→17:23)
[2019-05-01] MEDS ORDERED: MIDAZOLAM 2 MG/2 ML VIAL ONE ×2 (16:55→17:29)
[2019-05-01] MEDS ORDERED: LIDOCAINE VISCOUS 2% 20 ML UDC ONE (16:56)
--- NOTE | 2019-05-01 17:06 | NUR ---
Received report from nurse Guerrero. Pt currently in ICU for transesophageal echocardiogram.
--- NOTE | 2019-05-01 18:15 | NUR ---
Pt returned to room 120B from ICU s/p CALEB. Pt aaox4, wide awake, verbally responsive, no signs of distress. Pt able to amb with standby assist. Call light within reach. Left upper arm PICC line intact & patent, resumed TPN @ 30ml/hr & NS @ 100ml/hr.
--- NOTE | 2019-05-01 19:15 | NUR ---
RECEIVED REPORT FROM AM NURSE. PT AT BED AWAKE, LETHARGIC PERRLA 3MM, BRISK, PT AT ROOM AIR, BREATHING REGULARLY, LUNG SOUNDS CLEAR THROUGHOUT, HEART RATE REGULAR S1S2 PRESENT, CAP REFILL <3S, PULSES 2+ BILATERAL UPPER AND LOWER EXTREMITIES, ABDOMEN, SOFT, ROUND, NONDISTENDED, NONTENDER, BLADDER, SOFT, ROUND, NONDISTENDED, NONTENDER, SKIN INTACT, WARM, DRY, NO TENTING, PT HAS GENERALIZED WEAKNESS, PT HAS LEFT UPPER ARM PICC LINE, RUNNING TPN AT 30 ML/HR, AND IV FLUIDS NS AT 100 ML/HR. HOB 30 DEGREES, SIDE RAILS UP X2, BED AT LOWEST POSITION.
--- NOTE | 2019-05-01 19:35 | NUR ---
PT ENDORSED TO CHARGE POSTER IN STABLE CONDITION
[2019-05-01] MEDS ORDERED: MULTIVITAMIN-12 10 ML in DEXTROSE 50% 720 ML, AMINO ACIDS 8.5% 570 ML, FAT EMULSION 20%... IV SCH ×4 (20:00)
[2019-05-01] MEDS: GABAPENTIN 300 MG CAP PO SCH (21:09)
[2019-05-01] MEDS: ATORVASTATIN 20 MG TAB PO SCH (21:09)
[2019-05-01] MEDS: tiZANidine 4 MG TAB PO PRN (21:16)
--- NOTE | 2019-05-01 22:30 | NUR ---
DR. MALAVE AT BEDSIDE. NO NEW ORDERS. WILL CONTINUE TO MONITOR PT.
[2019-05-02] VITALS: BP 117/70
--- NOTE | 2019-05-02 00:25 | NUR ---
BLOOD GLUCOSE CHECKED, VS WNL. PT AT BED AWAKE, BREATHING REGULARLY ON ROOM AIR, IVF RUNNING, HOB 30 DEGREES, SIDERAILS UP X2, BED AT LOWEST POSITION.
[2019-05-02] MEDS ORDERED: BLEOS OP (00:33)
[2019-05-02] MEDS: BLOOD GLUCOSE MONITORING 1 DEV DEV MC SCH ×4 (00:54→17:56)
[2019-05-02] MEDS: ACETAMINOPHEN 325 MG TAB PO PRN (01:28)
--- NOTE | 2019-05-02 01:34 | NUR ---
PT COMPLAINS OF HEADACHE. TYLENOL MEDICATION GIVEN.
[2019-05-02] MEDS: HYDROmorphone 1 MG/ML AMP IVP PRN ×5 (02:27→19:37)
[2019-05-02] MEDS: NACL 0.9% 1,000 ML IV SCH ×2 (02:27→11:53)
--- NOTE | 2019-05-02 02:37 | NUR ---
PT COMPLAINS OF HEADACHE. DILAUDID GIVEN. PATIENT AT BED AWAKE, BREATHING REGULARLY ON ROOM AIR. WILL CONTINUE TO MONITOR. Addendum: 05/02/19 at 0240 by Eliazar Atwood RN ADDED: PT COMPLAINS OF HEADACHE AND ABDOMINAL PAIN 03/03
[2019-05-02 04:00] VITALS: BP 116/65
--- NOTE | 2019-05-02 04:26 | NUR ---
PT AT BED EYES CLOSED BREATHING REGULARLY. IV FLUIDS RUNNING, HOB 30 DEGREES, SIDE RAILS UP X2, BED AT LOWEST POSITION.
[2019-05-02] MEDS: MEROPENEM 1,000 MG in NACL 0.9% 100 ML IV SCH ×3 (04:58→21:20)
--- NOTE | 2019-05-02 05:51 | NUR ---
PULLED 5 MG OF MIDODRINE ON PYXIS INSTEAD OF 10 MG. OVERRODE THE PYXIS TO OBTAIN ANOTHER 5 MG.
[2019-05-02] MEDS: MIDODRINE 5 MG TAB PO SCH ×3 (06:03→18:22)
[2019-05-02 06:59] LABS: BASOPHILS % (AUTO) 0.5 % (0.0-2.0); EOSINOPHILS # (AUTO) 0.3 K/uL (0-0.4); EOSINOPHILS % (AUTO) 6.6 % (0.0-4.0); HEMATOCRIT 24.2 % (36-48); LYMPHOCYTES % (AUTO) 20.4 % (20.5-51.1); MEAN CORPUSCULAR HEMOGLOBIN 28 pg (27-31); MEAN CORPUSCULAR HGB CONC 33 g/dL (33-37); MEAN CORPUSCULAR VOLUME 84.7 fL (80-94); MONOCYTES # (AUTO) 0.3 K/uL (0.8-1.0); MONOCYTES % (AUTO) 5.8 % (1.7-9.3); NEUTROPHILS # (AUTO) 3.2 K/uL (1.8-7.7); NEUTROPHILS % (AUTO) 66.7 % (42.2-75.2); PLATELET COUNT (AUTO) 162 K/uL (140-450); RED BLOOD CELL COUNT(AUTO) 2.85 MIL/uL (4.20-5.40); RED CELL DISTRIBUTION WIDTH 17.4 % (11.6-13.7); WHITE BLOOD COUNT (AUTO) 4.9 K/uL (4.8-10.8)
--- NOTE | 2019-05-02 07:18 | NUR ---
CHANGE OF SHIFT REPORT GIVEN TO AM NURSE. PT AT STABLE CONDITION AT THIS TIME.
--- NOTE | 2019-05-02 07:19 | NUR ---
Received report from pm nurse Eliazar. Pt resting in bed, awake, verbally responsive, no signs of distress. DARIN PICC line 2-lumen intact with ongoing NS @ 100ml/hr & TPN @ 60ml/hr. Call light within reach.
[2019-05-02 07:41] LABS: MAGNESIUM 2.3 mg/dL (1.8-2.4); PHOSPHORUS 7.3 mg/dL (2.5-4.9)
[2019-05-02 07:52] LABS: ANION GAP 12.3 (8-16); CARBON DIOXIDE 26.3 mmol/L (21-32); POTASSIUM 5.6 mmol/L (3.5-5.1)
[2019-05-02 07:53] LABS: CREATININE 0.8 mg/dL (0.6-1.3)
[2019-05-02 08:00] VITALS: BP 136/84
--- NOTE | 2019-05-02 08:10 | NUR ---
Received report from experimental machining lab manager with glucose result of 600. Checked pt's fingerstick glucose = 120. Spoke with Aneudy from lab, states pm nurse pari blood from PICC (pt on TPN). Dr Quiñonez notified. No new orders at this time, states to recheck fingerstick glucose in 1hr.
[2019-05-02] MEDS: POLYETHYLENE GLYCOL 17 GM/PKT PO SCH (09:00)
[2019-05-02] MEDS: BISACODYL 10 MG SUPP RC SCH (09:00)
[2019-05-02] MEDS ORDERED: PREDNISOL/SULFACE 0.23%-10% OP SOL. 5 ML BTL OP SCH (09:00)
[2019-05-02] MEDS: MAGNESIUM HYDROXIDE 2400 MG/30 ML UDC PO SCH (09:00)
[2019-05-02] MEDS: LACTOBACILLUS RHAMNOSUS GG 1 EACH CAP PO SCH (09:30)
[2019-05-02] MEDS: SODIUM FERRIC GLUCONATE 125 MG in NACL 0.9% 100 ML IV SCH (09:30)
[2019-05-02] MEDS ORDERED: guaiFENesin DM 200/20 MG-10 ML 10 ML UDC PO PRN (10:45)
--- NOTE | 2019-05-02 11:52 | NUR ---
Robitussin DM administered for intermittent dry cough. Pt without SOB, respirations even & nonlabored.
[2019-05-02 12:00] VITALS: BP 131/82
--- NOTE | 2019-05-02 12:30 | NUR ---
Pt's home med pred forte given to pharmacist. Pt resting in bed, no signs of distress. Call light within reach.
--- NOTE | 2019-05-02 14:00 | NUR ---
Spoke to Dr. Quiñonez re: elevated potassium. Per physician, awaiting scheduled repeat lab draw @ 1400. No new orders at this time. Spoke to Aneudy sales agent [employer], states will be coming to draw pt's blood in a few minutes.
[2019-05-02] MEDS: PATIENTS OWN EENT OP SCH ×3 (14:13→21:16)
--- NOTE | 2019-05-02 14:20 | NUR ---
TPN on hold for blood draw from PICC. Awaiting labor relations teacher for vials.
--- NOTE | 2019-05-02 15:30 | NUR ---
Blood specimen drawn from PICC; site flushed withg 10ml NS, 20ml blood wasted before specimen is drawn. Site flushed with 10ml NS post blood draw. Pt requested to keep TPN on hold. Educated pt on risks & benefits, verbalized understanding. Left upper arm PICC intact with ongoing NS @ 100ml/hr, TPN on hold. Call light within reach.
[2019-05-02 16:00] VITALS: BP 151/82
[2019-05-02 17:20] LABS: ANION GAP 12.9 (8-16); CARBON DIOXIDE 27.2 mmol/L (21-32); CREATININE 0.5 mg/dL (0.6-1.3); POTASSIUM 4.1 mmol/L (3.5-5.1)
--- NOTE | 2019-05-02 19:15 | NUR ---
REPORT RECIEVED FROM DAY NURSE. PT STABLE ,IV PATENT, EKG SR. SAFETY MEASURES IN PLACE. CALL LIGHT WITHIN REACH.
--- NOTE | 2019-05-02 19:30 | NUR ---
Report given to pm nurse Milagros. Pt resting in bed, no signs of distress.
[2019-05-02 20:00] VITALS: BP 133/80
[2019-05-02] MEDS ORDERED: DEXTROSE IV SCH ×4 (20:00)
[2019-05-02] MEDS ORDERED: MULTIVITAMIN IV SCH ×4 (20:00)
[2019-05-02] MEDS ORDERED: [UNRECOGNIZED DRUG - OTHER] IV SCH ×4 (20:00)
[2019-05-02] MEDS ORDERED: AMINO ACIDS IV SCH ×4 (20:00)
[2019-05-02] MEDS: GABAPENTIN 300 MG CAP PO SCH (21:17)
[2019-05-02] MEDS: ATORVASTATIN 20 MG TAB PO SCH (21:17)
--- NOTE | 2019-05-02 22:00 | NUR ---
PT RESTING REPOSITION SELF. IV PATENT. TPN INFUSING WELL. NO DISTRESS NOTED.
[2019-05-03] VITALS: BP 153/77
--- NOTE | 2019-05-03 | NUR ---
PT. RESTING NO DISTRESS NOTED. IV INFUSING TPN WITH NO COMPLICATION. CALL LIGHT WITHIN REACH.
[2019-05-03] MEDS: HYDROmorphone 1 MG/ML AMP IVP PRN ×5 (00:15→17:41)
[2019-05-03] MEDS: ALPRAZolam 0.5 MG TAB PO PRN (00:19)
[2019-05-03] MEDS: BLOOD GLUCOSE MONITORING 1 DEV DEV MC SCH ×3 (00:21→12:00)
[2019-05-03] MEDS: NACL 0.9% 1,000 ML IV SCH ×3 (00:25→17:19)
--- NOTE | 2019-05-03 02:00 | NUR ---
PT. SLEEPING AND NO DISTRESS NOTED . TPN INFUSING. CALL LIGHT WITHIN REACH.
[2019-05-03 04:00] VITALS: BP 147/79
[2019-05-03] MEDS: MEROPENEM 1,000 MG in NACL 0.9% 100 ML IV SCH ×2 (05:37→13:28)
--- NOTE | 2019-05-03 06:28 | NUR ---
ENDORSED PT CARE TO DAY NURSE. PT STABLE. SR TELEMETRY.
[2019-05-03] MEDS: MIDODRINE 5 MG TAB PO SCH ×2 (06:30→13:27)
[2019-05-03 07:36] LABS: BASOPHILS % (AUTO) 0.4 % (0.0-2.0); EOSINOPHILS # (AUTO) 0.4 K/uL (0-0.4); EOSINOPHILS % (AUTO) 7.3 % (0.0-4.0); HEMATOCRIT 25.8 % (36-48); HEMOGLOBIN 8.4 g/dL (12.0-16.0); LYMPHOCYTES # (AUTO) 1.1 K/uL (2.5-16.5); LYMPHOCYTES % (AUTO) 22.4 % (20.5-51.1); MEAN CORPUSCULAR HEMOGLOBIN 26 pg (27-31); MEAN CORPUSCULAR HGB CONC 32 g/dL (33-37); MEAN CORPUSCULAR VOLUME 81.5 fL (80-94); MONOCYTES # (AUTO) 0.3 K/uL (0.8-1.0); MONOCYTES % (AUTO) 6.7 % (1.7-9.3); NEUTROPHILS # (AUTO) 3.1 K/uL (1.8-7.7); NEUTROPHILS % (AUTO) 63.2 % (42.2-75.2); PLATELET COUNT (AUTO) 207 K/uL (140-450); RED BLOOD CELL COUNT(AUTO) 3.17 MIL/uL (4.20-5.40)
--- NOTE | 2019-05-03 07:41 | NUR ---
Received report from shift production associate nurse. Pt in bed. no C/O pain. no distress. Call light in reach.
[2019-05-03 07:54] LABS: ANION GAP 14.1 (8-16); CARBON DIOXIDE 26.5 mmol/L (21-32); CREATININE 0.7 mg/dL (0.6-1.3); POTASSIUM 3.6 mmol/L (3.5-5.1)
[2019-05-03 08:00] VITALS: BP 160/81
[2019-05-03 08:24] LABS: MAGNESIUM 1.7 mg/dL (1.8-2.4); PHOSPHORUS 3.2 mg/dL (2.5-4.9)
[2019-05-03] MEDS: POLYETHYLENE GLYCOL 17 GM/PKT PO SCH (09:00)
[2019-05-03] MEDS: MAGNESIUM HYDROXIDE 2400 MG/30 ML UDC PO SCH (09:00)
[2019-05-03] MEDS: BISACODYL 10 MG SUPP RC SCH (09:00)
[2019-05-03] MEDS: LACTOBACILLUS RHAMNOSUS GG 1 EACH CAP PO SCH (09:00)
[2019-05-03] MEDS: SODIUM FERRIC GLUCONATE 125 MG in NACL 0.9% 100 ML IV SCH (09:32)
[2019-05-03] MEDS: PATIENTS OWN EENT OP SCH ×3 (09:35→16:58)
--- NOTE | 2019-05-03 09:41 | NUR ---
Late entry. Confirmed with RN that vancomycin IVPB completed at 2300.
--- NOTE | 2019-05-03 10:00 | NUR ---
Pt resting in bed. No signs of distress. No C/O pain. Call light in reach.
--- NOTE | 2019-05-03 10:11 | NUR ---
MET WITH THE PATIENT AT THE BEDSIDE REGARDING DC PLAN HOME WITH HOME HEALTH. SHE STATED SHE IS WITH [facility] AND IS HAPPY WITH THEIR SERVICES AND WANT TO CONTINUE WITH THEM. SHE COULD NOT PROVIDE PHONE NUMBER AT THIS TIME. DR. BAH MADE AWARE.
--- NOTE | 2019-05-03 10:36 | NUR ---
CONTACTED [facility] AT [phone], ABLE TO SPEAK TO WYATT REGARDING DC PLAN FOR HOME HEALTH FOR IV ANTIBIOTIC AND TPN. PROVIDED ME WITH FAX NUMBER [phone] TO SEND ORDER. CONTACTED [facility] AT [phone], ABLE TO SPEAK TO FERNY REGARDING DC PLAN. SHE ALSO CONFIRMED THAT PATIENT IS WITH THEIR SERVICES PRIOR TO HOSPITALIZATION. PROVIDED ME WITH FAX NUMBER [phone] TO SEND ORDERS. ORDER SENT TO PHARMACY AND HOME HEALTH TO ALL NUMBERS PROVIDED. CM TO FOLLOW UP.
[2019-05-03] MEDS: ACETAMINOPHEN 325 MG TAB PO PRN (11:57)
[2019-05-03 12:00] VITALS: BP 131/83
--- NOTE | 2019-05-03 12:00 | NUR ---
CONTACTED [facility] [phone], ABLE TO SPEAK TO ANNA REGARDING REFERRAL SENT. SHE STATED SHE HAS TO CHECK WITH HER INTAKE. WHEN ASKED WHAT IS THE NAME OF INTAKE PERSON, SHE STATED SHE DOES NOT KNOW WHO IS IN YET. PROVIDED HER WITH MY CONTACT INFO. Addendum: 05/03/19 at 1211 by Yasmin Rubio CM CONTACTED [facility], ABLE TO SPEAK TO WYATT TO FOLLOW UP ORDER SENT. SHE TRANSFERRED ME TO MARTINA (INTAKE). HE CONFIRMED THEY RECEIVED THE ORDER AND IS ABLE TO ACCEPT THE PATIENT. INFORMED HIM THAT THE DC PLAN IS FOR TODAY.
--- NOTE | 2019-05-03 12:00 | NUR ---
Pt resting in bed. No signs of distress. No C/O pain. Call light in reach.
[2019-05-03] MEDS ORDERED: LEVO750T2 IV ×2 (12:59→14:33)
[2019-05-03] MEDS ORDERED: MAG SULF 2000 MG/WATER PREMIX 50 ML IV SCH (13:00)
[2019-05-03] MEDS ORDERED: LACT10CA1 PO (13:00)
[2019-05-03] MEDS ORDERED: LEVOFLOXACIN 750 MG/D5W PREMIX 150 ML IV SCH (14:00)
[2019-05-03] MEDS ORDERED: [UNRECOGNIZED DRUG - CODE] IV ×2 (14:36→14:38)
--- NOTE | 2019-05-03 15:32 | NUR ---
Pt given discharge instructions. Verbalized understanding. Home health to follow at home. PICC line intact.
[2019-05-03 16:00] VITALS: BP 140/76
--- NOTE | 2019-05-03 16:08 | NUR ---
[facility] SPOKE WITH MARTINA (PHARMACIST) OK TO D/C PT AND MEDICATION WILL BE DELIVERED BY 6 PM AT HOME. NOTIFIED ANA LILIA CARPENTER.
--- NOTE | 2019-05-03 18:00 | NUR ---
Pt resting in bed. No signs of distress. No C/O pain. Call light in reach.
--- NOTE | 2019-05-03 19:06 | NUR ---
Pt is discharged. Ambulated with steady gait. Family accompanied her. Belongings with patient. PICC line saline locked. Discharge instructions with patient. No C/O of pain at time of discharge.
== END 2019-05-03 19:06 | disposition home health service (06) | DRG 314 ==
LOC: MED 19:30 → MTU 23:08
PROVIDERS: ADMIT Family Medicine; ATTEND Family Medicine
PROC: 02HV33Z Insertion of Infusion Device into Superior Vena Cava, Percutaneous Approach (ICD-10-PCS; principal; 2019-04-30)
PROC: B548ZZA Ultrasonography of Superior Vena Cava, Guidance (ICD-10-PCS; 2019-04-30)
PROC: 02PYX3Z Removal of Infusion Device from Great Vessel, External Approach (ICD-10-PCS; 2019-04-30)
DX: T82.7XXA Infection and inflammatory reaction due to other cardiac and vascular devices, implants and grafts, initial encounter (principal); J69.0 Pneumonitis due to inhalation of food and vomit; E43 Unspecified severe protein-calorie malnutrition; A41.50 Gram-negative sepsis, unspecified; R65.20 Severe sepsis without septic shock; Z68.1 Body mass index [BMI] 19.9 or less, adult; G90.3 Multi-system degeneration of the autonomic nervous system; E87.1 Hypo-osmolality and hyponatremia; I24.8 Other forms of acute ischemic heart disease; M32.9 Systemic lupus erythematosus, unspecified; I10 Essential (primary) hypertension; G89.29 Other chronic pain; E83.39 Other disorders of phosphorus metabolism; E83.42 Hypomagnesemia; E87.6 Hypokalemia; F41.1 Generalized anxiety disorder; G43.909 Migraine, unspecified, not intractable, without status migrainosus; K59.09 Other constipation; Y84.8 Other medical procedures as the cause of abnormal reaction of the patient, or of later complication, without mention of misadventure at the time of the procedure; Z88.0 Allergy status to penicillin; Z90.710 Acquired absence of both cervix and uterus; Z98.82 Breast implant status; Z88.5 Allergy status to narcotic agent; Z88.2 Allergy status to sulfonamides; Z79.899 Other long term (current) drug therapy
CPT/HCPCS: 36415; 71045; 71275; 76700; 80048; 80053; 80305; 81001; 81025; 82150; 82310; 82607; 82728; 82746; 82948; 83036; 83540; 83605; 83690; 83735; 83880; 84100; 84134; 84439; 84443; 84478; 84484; 85025; 85045; 85384; 85610; 85730; 86704; 86706; 86708; 86709; 86803; 87040; 87070; 87081; 87186; 87340; 87804; 93005; 93313; 96365; 96375; 99285; A9153; C1751; C1758; J0692; J1170; J1642; J1644; J1815; J1956; J2185; J2250; J2405; J2916; J3010; J3370; J3475; J3490; J7030; Q0092; Q9967

== ENCOUNTER 2019-09-26 13:08 | Inpatient (IN) | payer BC ==
[~2019-09-26] VITALS: Ht 170.2 cm; Wt 67.6 kg
[~2019-09-26 13:08] MED LIST changes: +BLEOS OP; -ROC2I IV; +[UNRECOGNIZED DRUG - CODE] IV
[2019-09-26 13:21] VITALS: BP 134/76
--- NOTE | 2019-09-26 13:45 | NUR ---
PT AMBULATED TO BED 4.
--- NOTE | 2019-09-26 13:48 | NUR ---
INCREASED CONSTIPATION AND ABDOMINAL DISTENTION X 3 DAYS. PT REPORTS SHE IS NORMALLY CONSTIPATED DUE TO AN AUTOIMMUNE DISORDER. +ABDOMINAL DISTENTION. PT IS AWAKE , ALERT,AFIBRILE. SCE , CBS BLF , HYPOACTIVE BOWEL SOUNDS ALL ABDOMINAL QUADRANT. PMHX--LUPUS, SEPSIS, ILLEOSTOMY (AND REVERSAL), AUTONOMIC DYSFUNCTION, CHRONIC PAIN ALLERGIES--SEE LIST
--- NOTE | 2019-09-26 13:50 | NUR ---
PT ON A GARNEY TO CT SCAN .
[2019-09-26 13:54] LABS: BASOPHILS % (AUTO) 0.5 % (0.0-2.0); EOSINOPHILS # (AUTO) 0.2 K/uL (0-0.4); EOSINOPHILS % (AUTO) 4.2 % (0.0-4.0); HEMATOCRIT 41.8 % (36-48); HEMOGLOBIN 14.1 g/dL (12.0-16.0); LYMPHOCYTES # (AUTO) 0.9 K/uL (2.5-16.5); LYMPHOCYTES % (AUTO) 22.6 % (20.5-51.1); MEAN CORPUSCULAR HEMOGLOBIN 28 pg (27-31); MEAN CORPUSCULAR HGB CONC 34 g/dL (33-37); MEAN CORPUSCULAR VOLUME 84.2 fL (80-94); MONOCYTES # (AUTO) 0.4 K/uL (0.8-1.0); MONOCYTES % (AUTO) 8.7 % (1.7-9.3); NEUTROPHILS # (AUTO) 2.6 K/uL (1.8-7.7); PLATELET COUNT (AUTO) 339 K/uL (140-450); RED BLOOD CELL COUNT(AUTO) 4.96 MIL/uL (4.20-5.40); RED CELL DISTRIBUTION WIDTH 15.3 % (11.6-13.7)
[2019-09-26 13:55] LABS: APPEARANCE,URINE CLEAR (CLEAR); BILIRUBIN,URINE NEGATIVE (NEGATIVE); BLOOD, URINE NEGATIVE (NEGATIVE); COLOR,URINE YELLOW (YELLOW); LEUKOCYTE ESTERASE ,URINE NEGATIVE (NEGATIVE); NITRITE, URINE NEGATIVE (NEGATIVE); UGLUCOSE NEGATIVE (NEGATIVE)
[2019-09-26] MEDS ORDERED: NACL 0.9% 1,000 ML IV ONE (13:55)
--- NOTE | 2019-09-26 13:58 | NUR ---
PT BACK FROM CT SCAN.
[2019-09-26 14:10] LABS: ALBUMIN 3.6 g/dL (3.4-5.0); ANION GAP 10.1 (8-16); CARBON DIOXIDE 27.4 mmol/L (21-32); CREATININE 0.9 mg/dL (0.6-1.3); POTASSIUM 3.5 mmol/L (3.5-5.1); TOTAL BILIRUBIN 0.4 mg/dL (0.0-1.0)
[2019-09-26] MEDS ORDERED: fentaNYL 0.05 MG/ML VIAL IVP ONE (14:45)
--- NOTE | 2019-09-26 15:20 | NUR ---
DR CHAMPAGNE AT BEDSIDE EVALUATING PATIENT.
[2019-09-26] MEDS ORDERED: NACL 0.9% 1,000 ML IV SCH (15:44)
[2019-09-26] MEDS ORDERED: LORazepam 2 MG/ML VIAL IM/IVP PRN (15:45)
[2019-09-26] MEDS ORDERED: ONDANSETRON 4 MG/2 ML VIAL IM/IVP PRN (15:45)
[2019-09-26] MEDS ORDERED: ACETAMINOPHEN 325 MG TAB PO PRN (15:45)
[2019-09-26] MEDS ORDERED: DOCUSATE SODIUM 100 MG GELCAP PO PRN (15:45)
[2019-09-26] MEDS ORDERED: ZOLPIDEM 5 MG TAB PO PRN (15:45)
[2019-09-26 16:26] LABS: PHOSPHORUS 4.1 mg/dL (2.5-4.9); THYROID STIMULATING HORMONE 0.4 uIU/mL (0.34-3.74)
--- NOTE | 2019-09-26 16:30 | NUR ---
Pt admitted to room 126A from ED via gurney, accompanied by spouse. Amb to bed with steady gait. Received bedside report from [facility] ED nurse. Pt aaox4, c/o 03/03 abd pain radiating to back, unrelieved by Fentanl from ED. Left hand 24G IV intact & asymptomatic. Medical hx obtained from pt, oriented to room & unit, verbalized understanding. Call light placed within reach. Dr Landaverde notified of persistent abd pain. Per , she will input med orders.
--- NOTE | 2019-09-26 16:30 | NUR ---
Patient will be admitted to care of DR Roa. Admited to telemetry. Will go to room 126 b. Belongings list completed. Report to britt anderson.
[2019-09-26 16:32] LABS: PROTHROMBIN TIME 10.4 secs (10.8-13.4)
[2019-09-26 17:00] VITALS: BP 121/84
[2019-09-26] MEDS ORDERED: ALPRAZolam 0.5 MG TAB PO SCH (17:05)
[2019-09-26] MEDS ORDERED: SODIUM PHOSPHATE 118 ML ENEM RC SCH (17:05)
[2019-09-26] MEDS ORDERED: HYDROmorphone 2 MG TAB PO PRN (17:05)
[2019-09-26 17:23] LABS: BARBITURATE, URINE NEGATIVE ng/ml (NEG <=200); BENZODIAZEPINE, URINE POSITIVE ng/mL (NEG <=200); CANNABINOID, URINE NEGATIVE ng/mL (NEG <=50); COCAINE, URINE NEGATIVE ng/mL (NEG <=300); OPIATE, URINE POSITIVE ng/mL (NEG <=2000); PHENCYCLIDINE SCREEN,URINE NEGATIVE ng/mL (NEG <=25)
[2019-09-26] MEDS: HYDROmorphone PFS 2 MG/ML SYR IVP PRN (17:54)
[2019-09-26] MEDS: DEXT 5% / NACL 0.9% 500 ML IV SCH (18:17)
[2019-09-26] MEDS ORDERED: ALPRAZolam 0.5 MG TAB PO PRN (18:25)
[2019-09-26] MEDS ORDERED: SODIUM PHOSPHATE 118 ML ENEM RC PRN (18:25)
[2019-09-26] MEDS ORDERED: MAGNESIUM CITRATE 300 ML BTL PO SCH (18:40)
[2019-09-26] MEDS ORDERED: TRAZ-343 PO (18:56)
--- NOTE | 2019-09-26 19:15 | NUR ---
Report given to pm nurse. Pt resting in bed at this time.
--- NOTE | 2019-09-26 19:15 | NUR ---
RECIEVED PT , AAOX4 , NID ,IV SITE INTACT AND PATENT , RESTING ON BED COMFORTABLY , NPO , PLAN OF CARE DISCUSSED AND VERBALIZE UNDERSTANDING . ON NPO . ON SAFETY PRECAUTION PROTOCOL - CALL LIGHT WITHIN REACH . WILL CONT. TO MONITOR.
[2019-09-26 20:00] VITALS: BP 124/72
[2019-09-26] MEDS: tiZANidine 4 MG TAB PO SCH (21:01)
[2019-09-26] MEDS: DOCUSATE SOD/SENNA 50/8.6 MG 1 TAB PO SCH (21:01)
[2019-09-26] MEDS: GABAPENTIN 300 MG CAP PO SCH (21:01)
--- NOTE | 2019-09-26 22:00 | NUR ---
PT SAID SHE USUALLY TAKING XANAX 1 MG TOGETHER W/ TRAMADOL 150 MG EVERY NIGHT - WILL INFORM SHAI ABOUT THIS MATTER . PT JUST TOOK AMBIEN 1 HR AGO - WILL CONT. TO MONITOR.
--- NOTE | 2019-09-26 23:00 | NUR ---
INFORM SHAI ABOUT PT'S CONCERN ABOUT HER XANAX AND TRAMADOL . THE PT'S BP IS 100/70- WILL CONT. TO MONITOR.
[2019-09-26] MEDS ORDERED: ALPRAZolam 0.25 MG TAB ONE (23:48)
[2019-09-27] VITALS: BP 135/76
--- NOTE | 2019-09-27 | NUR ---
RE CHECK BP 135/76 - WILL GIVE XANAX , DILAUDID TIV - O2 SAT WNL. C/O PAIN .
[2019-09-27] MEDS: HYDROmorphone PFS 2 MG/ML SYR IVP PRN ×4 (00:06→18:24)
--- NOTE | 2019-09-27 02:00 | NUR ---
MADE ROUNDS, RESTING ON BED - JUST MEDICATED W/ DILAUDID IV. WILL CONT. TO MONITOR.
[2019-09-27] MEDS: DEXT 5% / NACL 0.9% 500 ML IV SCH ×2 (02:05→06:26)
--- NOTE | 2019-09-27 03:00 | NUR ---
IV SITE LEAKS - FOUND OUT LOOSE CAP - BUT THE SITE IS STILL ON GOOD SHAPE - DRIED AND RE WRAPPED IT W/ GAUZE , WILL CONT TO MONITOR.
[2019-09-27 04:00] VITALS: BP 122/72
[2019-09-27] MEDS: tiZANidine 4 MG TAB PO SCH ×3 (05:05→21:27)
[2019-09-27 06:20] LABS: BASOPHILS % (AUTO) 0.6 % (0.0-2.0); EOSINOPHILS # (AUTO) 0.2 K/uL (0-0.4); HEMATOCRIT 37.1 % (36-48); HEMOGLOBIN 12.6 g/dL (12.0-16.0); LYMPHOCYTES # (AUTO) 1.1 K/uL (2.5-16.5); MEAN CORPUSCULAR HEMOGLOBIN 29 pg (27-31); MEAN CORPUSCULAR HGB CONC 34 g/dL (33-37); MEAN CORPUSCULAR VOLUME 84.6 fL (80-94); MONOCYTES # (AUTO) 0.4 K/uL (0.8-1.0); MONOCYTES % (AUTO) 10.9 % (1.7-9.3); NEUTROPHILS # (AUTO) 1.6 K/uL (1.8-7.7); NEUTROPHILS % (AUTO) 48.5 % (42.2-75.2); PLATELET COUNT (AUTO) 301 K/uL (140-450); RED BLOOD CELL COUNT(AUTO) 4.38 MIL/uL (4.20-5.40); RED CELL DISTRIBUTION WIDTH 15.4 % (11.6-13.7); WHITE BLOOD COUNT (AUTO) 3.3 K/uL (4.8-10.8)
[2019-09-27 07:03] LABS: ANION GAP 10.8 (8-16); CARBON DIOXIDE 28.1 mmol/L (21-32); CREATININE 0.8 mg/dL (0.6-1.3); POTASSIUM 3.9 mmol/L (3.5-5.1)
[2019-09-27 07:16] LABS: CHOL/HDL RATIO 3.9 (1-4.5); MAGNESIUM 2.1 mg/dL (1.8-2.4); PHOSPHORUS 3.5 mg/dL (2.5-4.9)
[2019-09-27 08:00] VITALS: BP 107/79
--- NOTE | 2019-09-27 08:48 | NUR ---
DISCHARGE PLANNING: THIS IS A 44 Y/O FEMALE PATIENT FROM HOME, WHO CAME IN DUE TO ABDOMINAL DISTENTION. PAST MEDICAL HISTORY INCLUDE SHY-DRAGER SYNDROME, CHRONIC SEVERE CONSTIPATION, ILEOSTOMY AND REVERSAL OF ILEOSTOMY AND CHRONIC HYPERTENSION. INITIAL DIAGNOSIS OF INTRACTABLE ABDOMINAL PAIN. CURRENT LABS INCLUDE WBC 3.3, H/H 12.6/37.1, BUN/CREA 12/0.8, NA/K 139/3.9. UDS POSITIVE FOR OPIATES AND BENZO. MRSA NARES NARES. CT ABD/PELVIS SHOWED NO ACUTE INFLAMMATORY CHANGES IN THE ABD OR PELVIS. CHEST X RAY SHOWED SUBTLE SUBCENTIMETER DENSITY IN THE RIGHT MID LUNG, POSSIBLY REPRESENTING PULMONARY NODULE. GI CONSULT IN PLACE. ON MOM, MIRALAX, SENNA AND DULCOLAX. DC PLAN BACK TO HOME ONCE STABLE.
[2019-09-27] MEDS: BISACODYL 10 MG SUPP RC SCH (09:00)
[2019-09-27] MEDS: DOCUSATE SOD/SENNA 50/8.6 MG 1 TAB PO SCH ×2 (09:00→21:00)
[2019-09-27] MEDS: MAGNESIUM HYDROXIDE 2400 MG/30 ML UDC PO SCH (09:00)
[2019-09-27] MEDS: POLYETHYLENE GLYCOL 17 GM/PKT PO SCH (09:00)
[2019-09-27] MEDS ORDERED: MAGNESIUM CITRATE 300 ML BTL PO SCH (09:30)
[2019-09-27] MEDS: MULTIVITAMIN 1 TAB PO SCH (09:47)
[2019-09-27] MEDS: DICYCLOMINE HCL LIQUID 10 MG/5 ML UDC PO PRN ×2 (09:48→17:46)
[2019-09-27] MEDS ORDERED: COMMUNICATION ORDER MC PRN (11:40)
[2019-09-27 12:00] VITALS: BP 114/82
[2019-09-27] MEDS: HYOSCYAMINE 0.125 MG TAB SL PRN ×2 (12:07→17:46)
[2019-09-27] MEDS: RELISTOR 12 MG/0.6 ML SUBQ SCH (12:45)
[2019-09-27] MEDS: DEXT 5% /NACL 0.9% 1,000 ML IV SCH (14:00)
[2019-09-27 16:00] VITALS: BP 102/66
--- NOTE | 2019-09-27 19:20 | NUR ---
RECD.RESTING IN BED, AWAKE, A/O4, RESPIRATION EVEN AND UNLABORED. IV OF D5NS AT 60 ML/HR INFUSING, LEFT WRIST G22. WATCHING TV, CONVERSING WITH PT IN THE OTHER BEDSIDE. INDEPENDENT, ABLE TO AMBULATE BY HERSELF. PAIN IN THE ABDOMEN 08/03, WAS MEDICATED EARLIER BY AM NURSE. PLAN OF CARE FOR THE SHIFT DISCUSSED. VERBALIZED UNDERSTANDING.
[2019-09-27 20:00] VITALS: BP 101/66
--- NOTE | 2019-09-27 20:00 | NUR ---
IV INFILTRATED, TAKEN OUT. WILL INSERT A NEW ONE.
[2019-09-27] MEDS ORDERED: traZODone 50 MG TAB PO SCH ×2 (21:00)
--- NOTE | 2019-09-27 21:00 | NUR ---
Patient's Plan of Care was discussed and reviewed with FURNITURE DELIVERY DRIVER: DIEGO YOUNG
[2019-09-27] MEDS: GABAPENTIN 300 MG CAP PO SCH (21:26)
--- NOTE | 2019-09-27 21:26 | NUR ---
DUE PO MEDICATIONS GIVEN.
--- NOTE | 2019-09-27 22:00 | NUR ---
CHARGE NURSE LAUREN TRIED TO PUT NEW IV LINE ON PT.
--- NOTE | 2019-09-27 23:30 | NUR ---
ANA LILIA BYERS TRIED TO PUT IV LINE ON PATIENT, PATIENT IS HARDSTICK.
[2019-09-28] VITALS: BP 98/60
--- NOTE | 2019-09-28 01:30 | NUR ---
ICU NURSE CAME AND ABLE TO PUT NEW IV LINE ON PATIENT, LEFT WRIST G22.
[2019-09-28] MEDS: HYDROmorphone PFS 2 MG/ML SYR IVP PRN ×3 (01:32→14:25)
--- NOTE | 2019-09-28 02:04 | NUR ---
COMPLAINT OF ITCHINESS, MEDICATED WITH BENADRYL PER MD ORDER.
--- NOTE | 2019-09-28 03:00 | NUR ---
NO ITCHINESS NOTED, SLEEPING COMFORTABLY IN BED.
[2019-09-28] MEDS: DEXT 5% /NACL 0.9% 1,000 ML IV SCH (05:31)
[2019-09-28] MEDS: tiZANidine 4 MG TAB PO SCH ×2 (06:08→14:14)
[2019-09-28 06:47] LABS: BASOPHILS % (AUTO) 1.2 % (0.0-2.0); EOSINOPHILS # (AUTO) 0.2 K/uL (0-0.4); EOSINOPHILS % (AUTO) 6.9 % (0.0-4.0); HEMATOCRIT 39.2 % (36-48); HEMOGLOBIN 12.8 g/dL (12.0-16.0); LYMPHOCYTES # (AUTO) 1.3 K/uL (2.5-16.5); LYMPHOCYTES % (AUTO) 41.9 % (20.5-51.1); MEAN CORPUSCULAR HEMOGLOBIN 28 pg (27-31); MEAN CORPUSCULAR HGB CONC 33 g/dL (33-37); MEAN CORPUSCULAR VOLUME 87.1 fL (80-94); MONOCYTES # (AUTO) 0.2 K/uL (0.8-1.0); MONOCYTES % (AUTO) 7.8 % (1.7-9.3); NEUTROPHILS # (AUTO) 1.3 K/uL (1.8-7.7); NEUTROPHILS % (AUTO) 42.2 % (42.2-75.2); PLATELET COUNT (AUTO) 301 K/uL (140-450); RED CELL DISTRIBUTION WIDTH 15.4 % (11.6-13.7)
[2019-09-28 06:49] LABS: ANION GAP 10.8 (8-16); CARBON DIOXIDE 28.9 mmol/L (21-32); CREATININE 0.8 mg/dL (0.6-1.3); POTASSIUM 3.7 mmol/L (3.5-5.1)
[2019-09-28 06:55] LABS: MAGNESIUM 1.9 mg/dL (1.8-2.4); PHOSPHORUS 4.4 mg/dL (2.5-4.9)
--- NOTE | 2019-09-28 07:30 | NUR ---
ABLE TO SLEEP WELL. CONDITION REMAIN STABLE. ENDORSED TO AM SHIFT NURSE FOR CONTINUITY OF CARE.
--- NOTE | 2019-09-28 07:35 | NUR ---
RECEIVED BEDSIDE REPORT FROM NIGHTSHIFT NURSE. PT RESTING IN BED. ABLE TO MAKE NEEDS KNOWN. RESPIRATIONS EVEN AND UNLABORED WITH NO SOB OR RESPIRATORY DISTRESS. SKIN WARM AND DRY TO TOUCH. IV SITE IN LEFT WRIST 22G IS CLEAN, DRY, AND INTACT. SAFETY MEASURES IN PLACE. WILL CONTINUE TO MONITOR.
[2019-09-28 08:00] VITALS: BP 128/87
--- NOTE | 2019-09-28 08:22 | NUR ---
ADMINISTERED SCHED MED PRESCRIBED PER MD ORDER. PT TOLERATED WELL. MEDICATION EDUCATION PERFORMED. PT VERBALIZED UNDERSTANDING. SAFETY MEASURES IN PLACE. WILL CONTINUE TO MONITOR.
[2019-09-28] MEDS: MAGNESIUM HYDROXIDE 2400 MG/30 ML UDC PO SCH (08:35)
[2019-09-28] MEDS: BISACODYL 10 MG SUPP RC SCH (08:36)
[2019-09-28] MEDS: DOCUSATE SOD/SENNA 50/8.6 MG 1 TAB PO SCH (08:36)
[2019-09-28] MEDS: MULTIVITAMIN 1 TAB PO SCH (08:36)
[2019-09-28] MEDS: POLYETHYLENE GLYCOL 17 GM/PKT PO SCH (08:36)
--- NOTE | 2019-09-28 09:45 | NUR ---
PT IS AWARE OF DISCHARGE TODAY AND WOULD LIKE TO GO HOME AROUND 3:30 WHEN HER GETS OFF WORK.
--- NOTE | 2019-09-28 10:15 | NUR ---
HOURLY ROUNDING. PT RESTING IN BED. ABLE TO MAKE NEEDS KNOWN. RESPIRATIONS EVEN AND UNLABORED WITH NO SOB OR RESPIRATORY DISTRESS. SKIN WARM AND DRY TO TOUCH. SAFETY MEASURES IN PLACE. WILL CONTINUE TO MONITOR
[2019-09-28] MEDS: RELISTOR 12 MG/0.6 ML SUBQ SCH (14:08)
--- NOTE | 2019-09-28 14:25 | NUR ---
ADMINISTERED SCHED MED PRESCRIBED PER MD ORDER. PT TOLERATED WELL. MEDICATION EDUCATION PERFORMED. PT VERBALIZED UNDERSTANDING. SAFETY MEASURES IN PLACE. WILL CONTINUE TO MONITOR.
[2019-09-28 15:32] VITALS: BP 97/61
--- NOTE | 2019-09-28 15:55 | NUR ---
WENT OVER DISCHARGE INSTRUCTIONS WITH PT. PT SIGNED APPROPRIATE DOCUMENTS. INSTRUCTED PT TO VISIT ED FOR ANY SINGS OF DISTRESS. PT DOES NOT QUALIFY FOR PNA VACCINE AND PT RECEIVED FLU VACCINE 04/2019. PT VERBALIZED UNDERSTANDING. ID BAND, INTACT IV CANNULA, AND ALLERGY BAND WERE REMOVED. PT CHANGED INTO HER OWN CLOTHES AND GATHERED HER BELONGINGS. PT ESCORTED SAFETY TO HER PRIVATE VEHICLE TO GO HOME. PT IS STABLE.
== END 2019-09-28 15:55 | disposition home or self-care (01) | DRG 57 ==
LOC: MED 13:08 → MMU 15:47
PROVIDERS: ADMIT General Practice; ATTEND General Practice
DX: G90.3 Multi-system degeneration of the autonomic nervous system (principal); I10 Essential (primary) hypertension; F41.1 Generalized anxiety disorder; K59.09 Other constipation; G43.909 Migraine, unspecified, not intractable, without status migrainosus; G47.00 Insomnia, unspecified; R91.1 Solitary pulmonary nodule; Z88.5 Allergy status to narcotic agent; Z88.0 Allergy status to penicillin; Z88.2 Allergy status to sulfonamides; Z90.710 Acquired absence of both cervix and uterus
CPT/HCPCS: 36415; 71045; 80048; 80053; 80305; 81003; 83036; 83690; 83735; 84100; 84443; 84484; 85025; 85610; 85730; 87081; 96361; 96374; 97116; 97161-GP; 99285; J1170; J3010; J7030; Q0163

== ENCOUNTER 2020-01-02 18:51 | Emergency (ER) | payer BC ==
[~2020-01-02] VITALS: Ht 170.2 cm; Wt 63.5 kg
[~2020-01-02 18:51] MED LIST changes: -LACT10CA1 PO; +TRAZ-343 PO; -[UNRECOGNIZED DRUG - CODE] IV
[2020-01-02 18:55] VITALS: BP 125/82
--- NOTE | 2020-01-02 18:58 | NUR ---
BIBA TAKEN TO BED 6
--- NOTE | 2020-01-02 19:10 | NUR ---
44F PRESENTS TO ED WITH C/O INTERMITTENT LLQ ABDOMINAL PAIN X 2 MONTHS. ABDOMEN SOFT AND NON TENDER. BOWEL SOUNDS NORMOACTIVE. +N/V, DENIES DIARRHEA. DENIES SOB/COUGH. DENIES LOC. PMHX: DENIES RX: DENIES
[2020-01-02] MEDS ORDERED: NACL 0.9% 1,000 ML IV SCH (19:31)
[2020-01-02] MEDS ORDERED: fentaNYL 0.05 MG/ML VIAL IVP ONE ×2 (19:35→20:55)
[2020-01-02] MEDS ORDERED: ONDANSETRON 4 MG/2 ML VIAL IVP ONE (19:35)
--- NOTE | 2020-01-02 19:51 | NUR ---
PT MEDICATED WITH FENTANYL AND ZOFRAN VIA IVP. TOLERATED WELL. NADR
--- NOTE | 2020-01-02 19:51 | NUR ---
LAB AT BEDSIDE.
[2020-01-02 20:00] LABS: BASOPHILS % (AUTO) 0.6 % (0.0-2.0); EOSINOPHILS # (AUTO) 0.1 K/uL (0-0.4); EOSINOPHILS % (AUTO) 1.9 % (0.0-4.0); HEMATOCRIT 38.2 % (36-48); HEMOGLOBIN 12.5 g/dL (12.0-16.0); LYMPHOCYTES # (AUTO) 0.9 K/uL (2.5-16.5); LYMPHOCYTES % (AUTO) 25.3 % (20.5-51.1); MEAN CORPUSCULAR HEMOGLOBIN 28 pg (27-31); MEAN CORPUSCULAR HGB CONC 33 g/dL (33-37); MEAN CORPUSCULAR VOLUME 86.2 fL (80-94); MONOCYTES # (AUTO) 0.3 K/uL (0.8-1.0); MONOCYTES % (AUTO) 7.6 % (1.7-9.3); NEUTROPHILS # (AUTO) 2.2 K/uL (1.8-7.7); NEUTROPHILS % (AUTO) 64.6 % (42.2-75.2); PLATELET COUNT (AUTO) 437 K/uL (140-450); RED BLOOD CELL COUNT(AUTO) 4.43 MIL/uL (4.20-5.40); RED CELL DISTRIBUTION WIDTH 15.5 % (11.6-13.7); WHITE BLOOD COUNT (AUTO) 3.5 K/uL (4.8-10.8)
[2020-01-02 20:15] LABS: ALBUMIN 3.3 g/dL (3.4-5.0); ANION GAP 10.2 (8-16); CARBON DIOXIDE 28.7 mmol/L (21-32); CREATININE 0.8 mg/dL (0.6-1.3); POTASSIUM 3.9 mmol/L (3.5-5.1); TOTAL BILIRUBIN 0.3 mg/dL (0.0-1.0)
== END 2020-01-02 21:17 | disposition home or self-care (01) ==
LOC: MED 18:51
DX: R10.9 Unspecified abdominal pain (principal); Z79.899 Other long term (current) drug therapy; Z88.0 Allergy status to penicillin; Z88.2 Allergy status to sulfonamides; Z98.890 Other specified postprocedural states
CPT/HCPCS: 36415; 74176; 80053; 81002; 81025; 83690; 85025; 96374; 96375; 96376; 99284; J2405; J3010; J7030

== ENCOUNTER 2024-04-23 22:45 | Emergency (ER) | payer BC ==
[~2024-04-23] VITALS: Ht 170.2 cm; Wt 63.5 kg
[~2024-04-23 22:45] MED LIST changes: -DOCU1TAB73 PO; -MULT-153 PO; +MULT-2112 PO; +NA P133E2 RC; -NA P135N RC; -ONDA8TAB PO; +ONDA8TAB87 PO; +RIZA10TA PO; +SENN1TAB80 PO; -[UNRECOGNIZED DRUG - CODE] PO
[2024-04-23 22:57] VITALS: BP 167/98; PULSE 80; RESP 18; TEMP 98; O2SAT 98
[2024-04-24] MEDS: KETOROLAC 30 MG/ML VIAL IVP ONE (00:06)
[2024-04-24] MEDS: DEXAMETHASONE 10 MG/ML VIAL IVP ONE (00:07)
[2024-04-24 00:12] LABS: BASOPHILS % (AUTO) 0.5 % (0.0-2.0); EOSINOPHILS # (AUTO) 0.2 K/uL (0-0.4); HEMATOCRIT 37.7 % (36-48); HEMOGLOBIN 12.6 g/dL (12.0-16.0); LYMPHOCYTES # (AUTO) 1.1 K/uL (2.5-16.5); LYMPHOCYTES % (AUTO) 18.3 % (20.5-51.1); MEAN CORPUSCULAR HEMOGLOBIN 29 pg (27-31); MEAN CORPUSCULAR HGB CONC 33 g/dL (33-37); MEAN CORPUSCULAR VOLUME 87.8 fL (80-94); MONOCYTES # (AUTO) 0.5 K/uL (0.8-1.0); MONOCYTES % (AUTO) 8.4 % (1.7-9.3); NEUTROPHILS # (AUTO) 4.2 K/uL (1.8-7.7); NEUTROPHILS % (AUTO) 69.8 % (42.2-75.2); PLATELET COUNT (AUTO) 239 K/uL (140-450); RED BLOOD CELL COUNT(AUTO) 4.29 MIL/uL (4.20-5.40); RED CELL DISTRIBUTION WIDTH 14.2 % (11.6-13.7)
[2024-04-24 00:25] LABS: ANION GAP 7.7 (8-16); CALCIUM 8.7 mg/dL (8.5-10.1); CARBON DIOXIDE 32.1 mmol/L (21-32); CREATININE 0.7 mg/dL (0.6-1.3); POTASSIUM 3.8 mmol/L (3.5-5.1)
[2024-04-24 01:05] VITALS: BP 152/98; PULSE 82; RESP 17; TEMP 98; O2SAT 98
[2024-04-24 01:50] LABS: FLU A ANTIGEN negative (NEGATIVE); FLU B ANTIGEN NEGATIVE (NEGATIVE)
[2024-04-24] MEDS ORDERED: DOXY150T12 PO (02:00)
== END 2024-04-24 02:08 | disposition home or self-care (01) ==
LOC: MED 22:45
DX: L03.211 Cellulitis of face (principal); R03.0 Elevated blood-pressure reading, without diagnosis of hypertension; J45.909 Unspecified asthma, uncomplicated; Z20.822 Contact with and (suspected) exposure to COVID-19; Z79.899 Other long term (current) drug therapy; Z88.0 Allergy status to penicillin; Z88.2 Allergy status to sulfonamides; Z88.8 Allergy status to other drugs, medicaments and biological substances
CPT/HCPCS: 36415; 70491; 80048; 85025; 87426; 87804; 93005; 96374; 96375; 99285; J1100; J1885; Q9967